=== PATIENT | male | born 1950 | race Caucasian/White ===

== ENCOUNTER 2017-08-30 16:34 | Outpatient (CLI) ==
[2016-04-04 17:44] VITALS: BMI 31.3
--- NOTE | 2017-08-31 08:14 | DI ---
Exam: Right knee three-view History: Knee pain Findings / impression: No acute bony or articular abnormalities. Moderate tricompartmental osteoart hritic change manifest by marginal osteophytosis.
== END 2017-08-30 16:35 | disposition home or self-care (01) ==
LOC: RAD 16:34
PROVIDERS: ATTEND Family Medicine
DX: M25.561 Pain in right knee (principal); M19.90 Unspecified osteoarthritis, unspecified site

== ENCOUNTER 2018-01-10 16:10 | Outpatient (CLI) | payer OTHER ==
[2016-04-04 17:44] VITALS: BMI 31.3
== END 2018-01-10 16:11 | disposition home or self-care (01) ==
LOC: CAR 16:10
PROVIDERS: ATTEND Family Medicine
DX: G47.33 Obstructive sleep apnea (adult) (pediatric) (principal); I50.9 Heart failure, unspecified; N18.3 Chronic kidney disease, stage 3 (moderate); I10 Essential (primary) hypertension; R60.0 Localized edema

== ENCOUNTER 2018-01-22 15:51 | Outpatient (CLI) ==
[2016-04-04 17:44] VITALS: BMI 31.3
== END 2018-01-22 15:52 | disposition home or self-care (01) ==
LOC: CAR 15:51
PROVIDERS: ATTEND Psychiatry & Neurology Sleep Medicine
DX: G47.33 Obstructive sleep apnea (adult) (pediatric) (principal); N18.3 Chronic kidney disease, stage 3 (moderate); I10 Essential (primary) hypertension; I50.9 Heart failure, unspecified; R60.0 Localized edema
CPT/HCPCS: 95810

== ENCOUNTER 2018-02-09 18:26 | Emergency (ER) | payer OTHER ==
[2018-02-09 18:30] VITALS: BP 173/87; TEMP 98.6; BMI 35.0
[2018-02-09] MEDS ORDERED: MOTRIN PO STA (19:28)
--- NOTE | 2018-02-09 19:31 | ED.PDOC ---
General ED Provider: Dr. MITCHEL FELIZ Chief Complaint: Ankle Pain/Injury Stated Complaint: Tripped after a tree log rolled over his left toe. Time Seen by Physician: 19:00 Mode of Arrival: Walk-In Information Source: Patient Exam Limitations: No limitations Primary Care Provider: TORRIE CASTANEDA Nursing and Triage Documentation Reviewed and Agree: Yes Does patient meet sepsis criteria?: No System Inflammatory Response Syndrome: Not Applicable Sepsis Protocol: For patient's 13 years and over: Temp is 96.8 and below OR 101 and greater Pulse >90 BPM Resp >20/minute Acutely Altered Mental Status Are patient's symptoms suggestive of a new infection, such as: -Pneumonia -Skin, Soft Tissue -Endocarditis -UTI -Bone, Joint Infection -Implantable Device -Acute Abdominal Infection -Wound Infection -Meningitis -Blood Stream Catheter Infection -Unknown Musculoskeletal Complaint Exam - Ankle/Foot Complaint/Exam Location of Injury: Reports: Left, Ankle, Foot Mechanism of Injury: Reports: Trauma Onset/Duration: 6 hour ago Symptoms Are: Reports: Still present Onset of Pain: Reports: Immediate Initial Severity: Severe Current Severity: Mild Location: Reports: Diffuse (mid foot ) Character: Reports: Aching, Throbbing Alleviating: Reports: Rest Aggravating: Reports: Movement, Weight bearing Able to Bear Weight: Yes (but with pain ) Associated Signs and Symptoms: Reports: Swelling (minimal ) Related History: Denies: Similar episode, Occupational injury Gout Risk Factors: Reports: None Lower Extremity Findings: Present: Limited range of motion (Dorsiflexion and plantaflexion ) Achilles Tendon Abnormality: No Tenderness: Present: Midfoot Limited Range of Motion: Present: Inversion, Eversion, Dorsiflexion, Plantarflexion Ankle/Foot Picture: 1 - tenderness to palpation Differential Diagnosis: Sprain, Strain Review of Systems - Review Of Systems Constitutional: Reports: No symptoms Eyes: Reports: No symptoms Ears, Nose, Mouth, Throat: Reports: No symptoms Respiratory: Reports: No symptoms Cardiac: Reports: No symptoms GI: Reports: No symptoms : Reports: No symptoms Musculoskeletal: Reports: Joint pain Skin: Reports: No symptoms Neurological: Reports: No symptoms Endocrine: Reports: No symptoms Hematologic/Lymphatic: Reports: No symptoms All Other Systems: Reviewed and Negative Past Medical History - Past Medical History Previously Healthy: No Endocrine: Reports: None Cardiovascular: Reports: None Respiratory: Reports: None Hematological: Reports: None Gastrointestinal: Reports: None Genitourinary: Reports: Kidney stones Neuro/Psych: Reports: None Musculoskeletal: Reports: None Cancer: Reports: None - Surgical History General Surgical History: Reports: None - Family History Family History: Reports: None - Social History Smoking Status: Never smoker Hx Substance Use: No Alcohol Screening: None Physical Exam - Physical Exam Appearance: Well-appearing Pain Distress: Mild Neck: Supple Respiratory: Airway patent, Breath sounds clear, Breath sounds equal, Respirations nonlabored Cardiovascular: RRR, Pulses normal, No rub, No murmur GI/: Soft, Nontender, No masses, Bowel sounds normal, No Organomegaly Musculoskeletal: Limited ROM (planta and Dorsiflexion ) Skin: Warm, Dry, Normal color Neurological: Sensation intact, Motor intact, Reflexes intact, Cranial nerves intact, Alert, Oriented Psychiatric: Anxious Interpretation - Radiology Interpretation Radiology Interpretation By: ED Physician Radiology Results: Negative Exam Interpreted: Other (foot) Critical Care Note - Critical Care Note Total Time (mins): 0 Course - Course Orders, Labs, Meds: Orders Category Date Time Status ED DACIA WRAP .ONCE EMERGENCY 02/09/18 19:28 Active Ibuprofen [Motrin] MEDS 02/09/18 19:28 Discontinued 600 mg PO ONCE STA ANKLE, LEFT MIN 3 VIEWS Stat RADS 02/09/18 18:36 Completed FOOT, LEFT 3 VIEWS Stat RADS 02/09/18 18:36 Completed Medications Discontinued Medications Generic Name Dose Route Start Last Admin Trade Name Freq PRN Reason Stop Dose Admin Ibuprofen 600 mg 02/09/18 19:28 02/09/18 19:39 Motrin PO 02/09/18 19:29 600 mg ONCE STA Administration Vital Signs: Temp Pulse Resp BP Pulse Ox 02/09/18 18:27 98.6 F 70 16 173/87 H 96 Departure - Departure Time of Disposition: 19:31 Disposition: HOME SELF-CARE Discharge Problem: Ankle pain Ankle sprain Qualifiers: Encounter type: initial encounter Involved ligament of ankle: unspecified ligament Laterality: left Qualified Code(s): S93.402A - Sprain of unspecified ligament of left ankle, initial encounter Instructions: Ankle Sprain (ED) Condition: Stable Pt referred to PMD for follow-up: Yes IPMP verified?: No Additional Instructions: Keep left foot elevated Take Ibuprofen or Tylenol as needed for pain Prescriptions: Ibuprofen [Motrin] 600 mg PO Q6H PRN #30 tablet PRN Reason: Analgesia Allergies/Adverse Reactions: Allergies No Known Allergies Allergy (Verified 04/04/16 17:42) Home Medications: Ambulatory Orders Ibuprofen [Motrin] 600 mg PO Q6H PRN #30 tablet 02/09/18 Disposition Discussed With: Patient
--- NOTE | 2018-02-09 19:52 | DI ---
EXAM: Three-view left foot COMPARISON: Left ankle from same day HISTORY: Trauma and pain FINDINGS: There is no acute fracture or dislocation. Alignment is anatomic. Joint spaces are well p reserved. There are calcaneal spurs. There is no soft tissue swelling. No unexpected radio-opaque fo reign bodies. IMPRESSION: No acute osseous abnormality.
--- NOTE | 2018-02-09 19:54 | DI ---
EXAM: Three-view left ankle COMPARISON: Left foot from same day HISTORY: Trauma and pain FINDINGS: There is no acute fracture or dislocation. Alignment is anatomic. There are calcaneal spu rs. There is some soft tissue swelling seen laterally. The ankle mortise is preserved. No unexpected radio-opaque foreign bodies. IMPRESSION: No acute osseous abnormality.
== END 2018-02-09 20:07 | disposition home or self-care (01) ==
LOC: ED 18:26
DX: S93.402A Sprain of unspecified ligament of left ankle, initial encounter (principal); W20.8XXA Other cause of strike by thrown, projected or falling object, initial encounter
CPT/HCPCS: 99283

== ENCOUNTER 2018-12-15 15:18 | Emergency (ER) | payer OTHER ==
[2018-12-15 15:25] VITALS: BP 193/97; TEMP 98.1; BMI 37.3
--- NOTE | 2018-12-15 15:41 | ED.PDOC ---
General ED Provider: Dr. PATRICK PALUMBO Chief Complaint: Shortness of Air Stated Complaint: Shortness of breath. No reported trauma. 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 No recollection of trauma. Time Seen by Physician: 15:30 Mode of Arrival: Walk-In Information Source: Patient Exam Limitations: No limitations Primary Care Provider: TORRIE CASTANEDA Nursing and Triage Documentation Reviewed and Agree: Yes Does patient meet sepsis criteria?: No System Inflammatory Response Syndrome: Not Applicable Sepsis Protocol: For patient's 13 years and over: Temp is 96.8 and below OR 101 and greater Pulse >90 BPM Resp >20/minute Acutely Altered Mental Status Are patient's symptoms suggestive of a new infection, such as: -Pneumonia -Skin, Soft Tissue -Endocarditis -UTI -Bone, Joint Infection -Implantable Device -Acute Abdominal Infection -Wound Infection -Meningitis -Blood Stream Catheter Infection -Unknown Respiratory Complaint Exam - Respiratory Complaint/Exam Onset/Duration: THis AM Symptoms Are: Still present Timing: Constant Initial Severity: Mild Current Severity: Moderate Location: Chest Character: Reports: Non-productive cough Aggravating: Reports: Exertion, Deep breaths, Recumbent position Alleviating: Reports: None Associated Signs and Symptoms: Reports: Chest pain. Denies: Rapid breathing, Dyspnea, Fever, Chills, Pleuritic chest pain, Wheezing, Hemoptysis, Dizziness, Calf pain, Calf swelling, Edema, URI, Nasal congestion, Hoarseness, Sinus discomfort, Vomiting, Sore throat, Weight loss, Decreased oral intake, Increased thirst, Increased appetite, Increased urination Related History: Denies: Similar episode History of Healthcare-Acquired Pneumonia: No Related Surgical History: Reports: None Pulmonary Embolism Risk Factors: None Cardiac Risk Factors: Reports: None Pseudomonas Risk Factors: Reports: None Tuberculosis Risk Factors: Reports: None Status Asthmaticus Risk Factors: Reports: None Home Oxygen Use: No Recent Stress Test: No Recent Echo/LV Function: No Inadequate Respiratory Effort: No Dysphagia Present: No Stridor Present: No JVD Present: No Accessory Muscle Use: No Retractions: Not Present Diminished Breath Sounds: Yes (Lt Basilar region ) Prolonged Respiration: Inspiratory phase Sinus Tenderness: None Grunting Respirations: No Kussmaul Respirations: No Differential Diagnoses: Airway Obstruction, COPD Exacerbation, Bronchospasm Non-Traumatic Chest Pain Syncope: EKG Performed Review of Systems - Review Of Systems Constitutional: Reports: Weakness Ears, Nose, Mouth, Throat: Reports: No symptoms Respiratory: Reports: Cough, Orthopnea, Short of air, Wheezing Cardiac: Reports: No symptoms GI: Reports: No symptoms : Reports: No symptoms Musculoskeletal: Reports: Muscle pain, Other (chest wall pain ) Skin: Reports: No symptoms Neurological: Reports: No symptoms Endocrine: Reports: No symptoms Hematologic/Lymphatic: Reports: No symptoms All Other Systems: Reviewed and Negative Past Medical History - Past Medical History Previously Healthy: No Endocrine: Reports: None Cardiovascular: Reports: None Respiratory: Reports: None Hematological: Reports: None Gastrointestinal: Reports: None Genitourinary: Reports: Kidney stones Neuro/Psych: Reports: None Musculoskeletal: Reports: None Cancer: Reports: None - Surgical History General Surgical History: Reports: None - Family History Family History: Reports: None - Social History Smoking Status: Former smoker Hx Substance Use: No Alcohol Screening: None - Immunizations Tetanus Shot up to Date: Yes Physical Exam - Physical Exam Appearance: Ill-appearing Ill-appearing: Mild Pain Distress: Moderate Eyes: AMARI, EOMI, Conjunctiva clear, Conjunctiva inflammed ENT: Ears normal, Nose normal, Oropharynx normal Neck: Supple Respiratory: Airway patent, Breath sounds diminished (LT Base) Cardiovascular: RRR, Pulses normal, No rub, No murmur GI/: Soft, Nontender, No masses, Bowel sounds normal, No Organomegaly Musculoskeletal: Normal strength (Tenderness to palpation lt ant chest wall), ROM intact, No edema, No calf tenderness Skin: Warm, Dry, Normal color Neurological: Sensation intact, Motor intact, Reflexes intact, Cranial nerves intact, Alert, Oriented Psychiatric: Affect appropriate, Mood appropriate Re-Evaluation - Re-Evaluation Time of Re-Evaluation: 17:15 Status: Improved Vital Signs Stable: Yes Appearance: NAD Lungs: Clear Skin: Warm and Dry Neuro: Alert and Oriented X3 CV: RRR Critical Care Note - Critical Care Note Total Time (mins): 0 Course - Course Hematology/Chemistry: 12/15/18 16:02 12/15/18 16:02 Orders, Labs, Meds: Lab Review 12/15/18 12/15/18 12/15/18 15:40 16:02 16:02 WBC 9.05 RBC 4.75 Hgb 15.1 Hct 45.2 MCV 95.2 H MCH 31.8 H MCHC 33.4 RDW Coeff of Natalio 13.3 Plt Count 118 L Immature Gran % (Auto) 0.3 Neut % (Auto) 73.6 Lymph % (Auto) 15.1 [place] % (Auto) 7.6 Eos % (Auto) 3.2 Baso % (Auto) 0.2 Immature Gran # (Auto) 0.0 Neut # (Auto) 6.7 Lymph # (Auto) 1.4 [place] # (Auto) 0.7 Eos # (Auto) 0.3 Baso # (Auto) 0.0 Puncture Site Rrad O2 Saturation 90.0 L ABG pH 7.369 ABG pCO2 40.2 ABG pO2 61.0 L ABG HCO3 23.2 ABG Total CO2 24 ABG Base Excess -2 George Test + FiO2 % 21.0 Sodium 140.8 Potassium 4.59 Chloride 105.2 Carbon Dioxide 26.4 Anion Gap 13.79 BUN 17.4 Creatinine 1.32 H Estimated GFR (MDRD) 54.00 BUN/Creatinine Ratio 13.18 Glucose 102.3 Lactic Acid Calcium 9.44 Total Bilirubin 0.58 AST 28.4 ALT 14.8 Alkaline Phosphatase 98.1 Total Creatine Kinase 95.7 Troponin I < 0.012 Total Protein 7.44 Albumin 4.41 Globulin 3.03 Albumin/Globulin Ratio 1.45 Urine Color Urine Clarity Urine pH Ur Specific [place] Urine Protein Urine Glucose (UA) Urine Ketones Urine Blood Urine Nitrite Urine Bilirubin Urine Urobilinogen Ur Leukocyte Esterase 12/15/18 12/15/18 16:40 16:44 WBC RBC Hgb Hct MCV MCH MCHC RDW Coeff of Natalio Plt Count Immature Gran % (Auto) Neut % (Auto) Lymph % (Auto) [place] % (Auto) Eos % (Auto) Baso % (Auto) Immature Gran # (Auto) Neut # (Auto) Lymph # (Auto) [place] # (Auto) Eos # (Auto) Baso # (Auto) Puncture Site O2 Saturation ABG pH ABG pCO2 ABG pO2 ABG HCO3 ABG Total CO2 ABG Base Excess George Test FiO2 % Sodium Potassium Chloride Carbon Dioxide Anion Gap BUN Creatinine Estimated GFR (MDRD) BUN/Creatinine Ratio Glucose Lactic Acid 0.80 Calcium Total Bilirubin AST ALT Alkaline Phosphatase Total Creatine Kinase Troponin I Total Protein Albumin Globulin Albumin/Globulin Ratio Urine Color Yellow Urine Clarity Clear Urine pH 6.0 Ur Specific [place]ade 1.015 Urine Protein Negative Urine Glucose (UA) Negative Urine Ketones Negative Urine Blood Negative Urine Nitrite Negative Urine Bilirubin Negative Urine Urobilinogen 0.2 Ur Leukocyte Esterase Negative Orders Category Date Time Status ABG DRAW REQUEST Stat CARDIO 12/15/18 15:51 Completed EKG-(ED ONLY) Stat CARDIO 12/15/18 15:39 Completed NEBULIZER TREATMENT Stat CARDIO 12/15/18 16:10 Completed OXYGEN Routine CARDIO 12/15/18 15:53 Completed IV [ED IV/MEDIPORT/POWERPORT] .ONCE EMERGENCY 12/15/18 15:50 Active ABG Stat LAB 12/15/18 15:40 Completed BLOOD CULTURE (ED ONLY) Stat LAB 12/15/18 16:44 Received CBC W/ AUTO DIFF Stat LAB 12/15/18 16:02 Completed COMPREHENSIVE METABOLIC PANEL Stat LAB 12/15/18 16:02 Completed CPK [CREATINE KINASE] Stat LAB 12/15/18 16:02 Completed LACTIC ACID Stat LAB 12/15/18 16:44 Completed TROPONIN I Stat LAB 12/15/18 16:02 Completed UA [URINALYSIS C & S IF INDICATED] Stat LAB 12/15/18 16:40 Completed 0.9 % Sodium Chloride [Saline Flush] MEDS 12/15/18 15:50 Ordered 1 syr IVF PRN PRN Amlodipine Besylate [Norvasc] MEDS 12/15/18 17:43 Discontinued 5 mg PO ONCE STA Ceftriaxone Sodium [Rocephin] MEDS 12/15/18 17:27 Discontinued 1 gm .ROUTE .STK-MED ONE Ceftriaxone Sodium [Rocephin] 1 gm MEDS 12/15/18 17:23 Active 0.9 % Sodium Chloride [Sodium Chloride] 50 ml IV ONCE Ipratropium/Albuterol Neb [Duoneb] MEDS 12/15/18 16:10 Discontinued 1 vial NEB ONCE STA Methylprednisolone Sod Succ/Pf [Solu-Medrol 125 mg] MEDS 12/15/18 17:22 Discontinued 125 mg IVP ONCE STA Nalbuphine HCl [Nubain] MEDS 12/15/18 15:53 Discontinued 10 mg IVP ONCE STA Sodium Chloride 0.9% [Sodium Chloride] 1,000 ml MEDS 12/15/18 15:54 Active IV ONCE CHEST, 1V AP ONLY Stat RADS 12/15/18 15:40 Completed Medications Generic Name Dose Route Start Last Admin Trade Name Freq PRN Reason Stop Dose Admin Sodium Chloride 1,000 mls @ 125 mls/hr 12/15/18 15:54 12/15/18 16:15 Sodium Chloride IV 12/15/18 23:53 125 mls/hr ONCE ONE Administration Ceftriaxone Sodium 1 gm/ 50 mls @ 75 mls/hr 12/15/18 17:23 12/15/18 17:33 Sodium Chloride IV 12/15/18 18:02 75 mls/hr ONCE STA Administration Sodium Chloride 1 syr 12/15/18 15:50 Saline Flush IVF PRN PRN To flush IV Discontinued Medications Generic Name Dose Route Start Last Admin Trade Name Freq PRN Reason Stop Dose Admin Albuterol/Ipratropium 1 vial 12/15/18 16:10 12/15/18 16:24 Duoneb NEB 12/15/18 16:11 1 vial ONCE STA Administration Amlodipine Besylate 5 mg 12/15/18 17:43 12/15/18 18:01 Norvasc PO 12/15/18 17:44 Not Given ONCE STA Methylprednisolone Sodium Succinate 125 mg 12/15/18 17:22 12/15/18 17:34 Solu-Medrol 125 Mg IVP 12/15/18 17:23 125 mg ONCE STA Administration Nalbuphine HCl 10 mg 12/15/18 15:53 12/15/18 16:15 Nubain IVP 12/15/18 15:54 10 mg ONCE STA Administration Vital Signs: Temp Pulse Resp BP Pulse Ox 12/15/18 15:19 98.1 F 82 22 193/97 H 94 L Departure - Departure Time of Disposition: 17:20 Disposition: HOME SELF-CARE Discharge Problem: Pneumonitis, Mild bibasilar atelectasis, Anterior chest wall pain, Hypertension Instructions: Pneumonitis (ED), Chest Wall Pain (ED) Condition: Good Pt referred to PMD for follow-up: Yes (1 week) IPMP verified?: No Additional Instructions: GO home and Take BP meds as directed; Monitor BP at home daily and record Follow up PCP in 7-10 days Off work through sunday Tylenol for pain as needed AVOID NSAIDS Prescriptions: Amoxicillin/Potassium Clav [Augmentin 875-125 mg Tab] 1 tab PO Q12HR #20 tablet Albuterol Sulfate [Ventolin Hfa] 8 gm IH QID PRN #1 hfa.aer.ad PRN Reason: Shortness of breath Amlodipine Besylate [Norvasc] 5 mg PO DAILY #7 tablet Allergies/Adverse Reactions: Allergies No Known Allergies Allergy (Verified 04/04/16 17:42) Home Medications: Ambulatory Orders Albuterol Sulfate [Ventolin Hfa] 8 gm IH QID PRN #1 hfa.aer.ad 12/15/18 Amitriptyline HCl 25 mg PO MONTHLY 12/15/18 Amoxicillin/Potassium Clav [Augmentin 875-125 mg Tab] 1 tab PO Q12HR #20 tablet 12/15/18 Cyanocobalamin (Vitamin B-12) [Vitamin B-12] 1,000 mcg SQ ONCE 12/15/18 Diclofenac Sodium 75 mg PO DAILY 12/15/18 Diltiazem HCl [Diltiazem 24Hr Cd] 240 mg PO DAILY 12/15/18 Lisinopril [Zestril] 40 mg PO DAILY 12/15/18 Metoprolol Succinate 50 mg PO DAILY 12/15/18 Oxycodone-Acetaminophen 5-325 [Percocet 5-325] 1 tab PO Q6H 12/15/18 Tamsulosin HCl [Flomax] 0.4 mg PO DAILY 12/15/18 Disposition Discussed With: Patient, Family
[2018-12-15] MEDS ORDERED: TORADOL IVP STA (15:50)
[2018-12-15] MEDS ORDERED: NUBAIN IVP STA (15:53)
[2018-12-15] MEDS ORDERED: SODIUM CHLORIDE 1,000 ML IV ONE (15:54)
[2018-12-15] MEDS ORDERED: DUONEB NEB STA (16:10)
--- NOTE | 2018-12-15 16:26 | DI ---
EXAM: Portable AP view of the chest CLINICAL HISTORY: Chest pain. FINDINGS: No priors are available. The heart size and mediastinal contours are normal. No masses are seen. Mild bibasilar infiltrates are present. Left greater than right. No effusions are seen. No pneumothorax is evident. IMPRESSION: Mild bibasilar infiltrates left greater than right
[2018-12-15] MEDS ORDERED: SOLU-MEDROL 125 MG IVP STA (17:22)
[2018-12-15] MEDS ORDERED: ROCEPHIN 1 GM in SODIUM CHLORIDE 50 ML IV STA (17:23)
[2018-12-15] MEDS ORDERED: ROCEPHIN ONE (17:27)
[2018-12-15] MEDS ORDERED: NORVASC PO STA (17:43)
== END 2018-12-15 18:21 | disposition home or self-care (01) ==
LOC: ED 15:18
DX: J18.9 Pneumonia, unspecified organism (principal); J98.11 Atelectasis; R07.89 Other chest pain; I10 Essential (primary) hypertension; R06.02 Shortness of breath; Z79.899 Other long term (current) drug therapy
CPT/HCPCS: 36415; 80053; 81001; 82550; 82803; 83605; 84484; 85025; 87040; 93005; 93010; 94640; 96365; 96375; 99284

== ENCOUNTER 2025-01-25 17:04 | Inpatient (IN) ==
--- NOTE | 2025-01-25 17:25 | ED.PDOC ---
General HPI ED Provider: Dr. LISBET ORO DO Chief Complaint: Shortness of Air Stated Complaint: 75-year-old elderly white male presents via ambulance from intermediate with complaints of acute shortness of breath. Patient is O2 dependent COPD and has been on 3 L nasal cannula for several years now. When asked when his shortness of breath began, patient states 3 years ago. Patient is focused on COVID-19 infection that he feels caused him to be this sick with his breathing. However staff at intermediate stated shortness of breath that was worse began today at 11 AM. Patient denies any new shortness of breath. He is post CVA with expressive aphasia that makes it difficult to understand but he appears to only be complaining of some discomfort from nasal cannula in his nose and his ears. He denies any chest pain, he denies any belly pain, he denies a headache. Again uncertain of orientation or clarity of answers. Patient is obese and laying in bed with tachypneic respiratory rate and tachycardic on arrival. He appears to be in mild respiratory discomfort but not distress. O2 sats on his normal 3 L were 97% on arrival to ED. Per intermediate staff no recent illness and specifically no headache, nausea, vomiting, fever, chills, abdominal pain, pain on urination, rashes or sores, unilateral weakness, headache, or vision changes. Time Seen by Provider: 01/25/25 17:18 Mode of Arrival: Ambulance Information Source: Patient, Senior Living and EMT Exam Limitations: No limitations Primary Care Provider: KEN LIM MD Nursing and Triage Documentation Reviewed and Agree: Yes Opioid Naive vs. Tolerant Does Patient Take Opioids?: No Is Patient Opioid Naive?: Yes What is Opioid Naive?: *Opioid Naive implies the patient is not already taking opioids or not chronically receiving opioids on a daily basis. *PRN dosing is not "usually" associated with tolerance. *Patients are at higher risk of over-sedation and aspiration. Is Patient Opioid Tolerant?: No What is Opioid Tolerant?: *Opioid Tolerance implies less than the expected response to an opioid. *Acquired tolerance is defined by the patient taking 60mg of oral morphine daily (or equianalgesic dose of another opioid) for 1 week or more. *Often associated with chronic pain. *May take more than usual dose to achieve desired pain control. Review of Systems Review Of Systems Constitutional: Denies Chills or Fever Eyes: Denies Vision change Ears, Nose, Mouth, Throat: Denies Ear pain, Nose discharge or Throat pain Respiratory: Reports Cough, Shortness of Breath and Wheezing; Denies Orthopnea Cardiac: Reports Edema; Denies Chest pain GI: Denies Abdominal pain, Diarrhea, Nausea or Vomiting : Denies Burning or Dysuria Musculoskeletal: Denies Back pain Neurological: Reports Anxiety and Depressed; Denies Headache or Weakness PFSH PFSH Medical History (Updated 01/26/25 @ 08:00 by LISBET ORO DO) Hypertension I10 - Essential (primary) hypertension (ICD-10) Family History (Updated 01/25/25 @ 23:31 by FABIOLA MON RN) Other No known health problems Social History (Updated 01/25/25 @ 23:31 by FABIOLA MON RN) Smoking and tobacco status: Never smoker Alcohol intake: former Substance use type: does not use Special margoth needs: No Adopted: No Caregiver/support person: No Foster care: No Housing: intermediate Marital status: D Lives independently: No Daycare: no daycare CHCF: Yes Current occupational status: retired Current gender identity: male Surgical History (Updated 01/25/25 @ 23:31 by FABIOLA MON RN) Hip joint replacement status Z96.649 - Presence of unspecified artificial hip joint (ICD-10) Knee joint replacement status Z96.659 - Presence of unspecified artificial knee joint (ICD-10) History of gastric bypass Z98.84 - Bariatric surgery status (ICD-10) History of joint surgery rotator cuff Z98.890 - Other specified postprocedural states (ICD-10) Status post coronary artery bypass graft Z95.1 - Presence of aortocoronary bypass graft (ICD-10) Physical Exam Physical Exam Appearance: Reports Ill-appearing (Chronically ill-appearing elderly white male who appears older than stated age. He does not appear acutely ill and is not in acute distress.) and Other (Patient apparently status post CVA with some expressive aphasia. Unclear if he has receptive aphasia as well. He is appropriate nd cooperative in interactions with staff and this provider. However he is very difficult to understand when he is talking. Orientation uncertain.) Ill-appearing: None Pain Distress: None Eyes: Reports AMARI, EOMI, Conjunctiva clear and Other (Sclera anicteric); Denies Conjunctiva inflammed ENT: Reports Ears normal, Nose normal (Mild irritation to bilateral naris related to nasal cannula. Otherwise patent and without discharge or drainage or swelling.), Oropharynx normal (Mild cobblestoning noted. No significant erythema. Airway patent.) and Dry mucosa; Denies Rhinorrhea, Erythema or Exudate Neck: Supple Respiratory: Reports Airway patent, Breath sounds equal, Breath sounds diminished, Crackles, Rhonchi, Wheezes and Other (Patient mildly tachypneic but breath sounds are equal, no dullness to percussion, scattered rales and rhonchi and wheezes are noted. Significant bibasilar rales present. Bilateral lower extremity edema 2-3+.. Pancho wrappings in place. Not removed.); Denies Retractions Cardiovascular: Reports Pulses normal, Tachycardia and Other GI/: Reports Soft, Nontender, Bowel sounds normal and Other (Moderate to marked adiposity. Not evaluated for masses or megaly.) Musculoskeletal: Reports ROM intact, Edema and Other (Formal strength testing not performed. Patient moves extremities x 4 but does not appear to be ambulatory and have much strength bilateral lower extremities.) Skin: Reports Warm, Dry and Normal color Neurological: Reports Motor intact, Reflexes intact, Alert, Oriented (Patient appears oriented to place but had apparently not wanted to come to [place] but wanted to come to the [facility]. When told he could not go to [place] he apparently stated he would come to [place]. On questioning, patient initially does not recall that he is at [place] but then remembers when we ) and Other (No facial asymmetries are noted. Gait not observed.) Psychiatric: Reports Other (Affect slightly flat mood appears depressed.) Interpretation EKG Interpretation EKG Interpretation By: ED Physician (Interpreted by this provider@[id number]) Time of EKG #1: 17:28 Rate: Normal (rate 92) Rhythm: Sinus Ectopy: None [place]: NL (Nl intervals; artifact diffusely limits interpretation) ST Segment: Normal Physician Progress Note Physician Progress Note: 75-year-old elderly white male presents via ambulance from intermediate with complaints of acute shortness of breath. Patient is O2 dependent COPD and has been on 3 L nasal cannula for several years now. When asked when his shortness of breath began, patient states 3 years ago. Patient is focused on COVID-19 infection that he feels caused him to be this sick with his breathing. However staff at intermediate stated shortness of breath that was worse began today at 11 AM. Patient denies any new shortness of breath. He is post CVA with expressive aphasia that makes it difficult to understand but he appears to only be complaining of some discomfort from nasal cannula in his nose and his ears. He denies any chest pain, he denies any belly pain, he denies a headache. Again uncertain of orientation or clarity of answers. Patient is obese and laying in bed with tachypneic respiratory rate and tachycardic on arrival. He appears to be in mild respiratory discomfort but not distress. O2 sats on his normal 3 L were 97% on arrival to ED. History, medications, chief complaint, and exam were all evaluated and considered. Will proceed with workup for CHF and COPD exacerbation as well as acute KS versus acute coronary syndrome. Labs were sent, chest x-ray obtained, and EKG performed. Patient's breathing had improved with DuoNeb here. We did not proceed with steroids given improvement and patient appeared to be at his baseline. Patient remained mildly tachypneic and D-dimer was elevated. Given the tachypnea and tachycardia and worsening shortness of breath per intermediate staff, we did go ahead and obtain CT PE protocol. CT PE protocol read is negative for PE and no additional acute pathology noted. After review of labs, ABG, and chest x-ray, it was decided to admit to observation for aggressive pulmonary toiletry and further monitoring. No evidence for acute illness but acute exacerbation COPD is likely with a component of systolic CHF. Given patient's significant edema, we will go ahead and treat with some IV Lasix as well. Advised patient will admit for observation and monitoring and aggressive pulmonary treatments to see if we can get him to feel better with his breathing. He agrees to plan of action. 20:45p patient discussed with Chase Dinh NP. She agrees to admit for observation. Will begin aggressive pulmonary toiletry and monitor for worsening or improving condition. At this time patient is stable on 3 L nasal cannula. All EKG and plain radiographs are reviewed viewed and interpreted by this provider independently unless otherwise noted.. CT scans are reviewed and interpreted by radiology unless otherwise noted. Minors or disabled patients accompanied by guardians have had appropriate consent obtained for testing and treatment. This note is created using voice dictation and may contain spelling and/or contextual grammatical errors related to voice dictation. Course Course 01/26/25 05:29 01/26/25 05:29 Orders, Labs, Meds: Lab Review 01/25/25 01/25/25 01/25/25 17:25 17:28 17:34 WBC 7.03 RBC 3.37 L Hgb 10.4 L Hct 32.5 L MCV 96.4 H MCH 30.9 MCHC 32.0 RDW Coeff of Natalio 15.9 H Plt Count 161 Immature Gran % (Auto) 0.3 Neut % (Auto) 65.1 Lymph % (Auto) 16.5 [place] % (Auto) 9.4 Eos % (Auto) 8.4 H Baso % (Auto) 0.3 Neut # (Auto) 4.6 Lymph # (Auto) 1.2 [place] # (Auto) 0.7 Eos # (Auto) 0.6 Baso # (Auto) 0.0 Immature Gran # (Auto) 0.0 Puncture Site Rt brach Base Excess 7.2 H O2 Saturation 94.0 ABG pH 7.50 H ABG pCO2 39.0 ABG pO2 64.0 L ABG HCO3 30.4 H ABG Total CO2 31.6 H George Test N/a Hemoglobin 2.4 H Oxyhemoglobin 92.1 L Carboxyhemoglobin 6.2 H Total Hemoglobin 10.0 L O2 Delivery Device Cannula Oxygen Liter Flow 3.00 FiO2 % 32.0 Sodium 142.1 Potassium 3.77 Chloride 105.2 Carbon Dioxide 32.2 H Anion Gap 8.47 BUN 24.0 H Creatinine 1.14 H Estimated GFR (MDRD) 63.00 BUN/Creatinine Ratio 21.05 Glucose 95.6 Calcium 9.37 Total Bilirubin 0.47 AST 33.7 ALT 21.0 Alkaline Phosphatase 115.5 Troponin I 0.013 NT-Pro-B Natriuret Pep 525 H Total Protein 6.23 L Albumin 3.36 L Globulin 2.87 Albumin/Globulin Ratio 1.17 D-Dimer 723.95 H Orders Category Date Time Status ADMIT OBSERVATION [PLACE PATIENT OBSERVATION] .TO ADMISSION 01/25/25 20:52 Active MEDSURG (MONITORED BED) ABG DRAW REQUEST Stat CARDIO 01/25/25 17:19 Completed EKG-(ED ONLY) Stat CARDIO 01/25/25 17:18 Completed NEBULIZER TREATMENT Routine CARDIO 01/25/25 20:57 Active NEBULIZER TREATMENT Stat CARDIO 01/25/25 17:27 Completed OXYGEN Routine CARDIO 01/25/25 20:58 Active ACTIVITY .Early Mobilization for VTE Prevention CARE 01/25/25 20:57 Active NPO REMINDER: IMAGING ONCE CARE 01/25/25 19:28 Completed TELEMETRY MONITORING TELE CARE 01/25/25 20:52 Active VITAL SIGNS Q4HR CARE 01/25/25 20:58 Active CARDIAC DIET DIETARY 01/26/25 Breakfast Ordered FLUID RESTRICTION 1800 ML DIETARY 01/26/25 Breakfast Ordered ABG COOX Stat LAB 01/25/25 17:34 Completed CBC W/ AUTO DIFF DAILY@0600 LAB 01/26/25 05:29 Completed CBC W/ AUTO DIFF DAILY@0600 LAB 01/27/25 06:00 Ordered CBC W/ AUTO DIFF Stat LAB 01/25/25 17:28 Completed CMP [COMPREHENSIVE METABOLIC PANEL] Stat LAB 01/25/25 17:28 Completed COMPREHENSIVE METABOLIC PANEL DAILY@0600 LAB 01/26/25 05:29 Completed COMPREHENSIVE METABOLIC PANEL DAILY@0600 LAB 01/27/25 06:00 Ordered D-DIMER Stat LAB 01/25/25 17:28 Completed ED PROBNP [NT-PROBNP(ED)] Stat LAB 01/25/25 17:25 Completed TROPONIN I Stat LAB 01/25/25 17:28 Completed Acetaminophen [Tylenol] Meds 01/25/25 20:57 Active 650 mg PO Q4H PRN Furosemide [Lasix] Meds 01/26/25 06:00 Active 40 mg IVP BIDAC2 Furosemide [Lasix] Meds 01/25/25 19:27 Discontinued 60 mg IVP ONCE STA Iohexol [Omnipaque 350 mg/ml 100Ml] Meds 01/25/25 19:43 Discontinued 100 ml IVP ONCE ONE Ipratropium/Albuterol Neb [Duoneb] Meds 01/25/25 17:27 Discontinued 3 ml NEB ONCE STA Ipratropium/Albuterol Neb [Duoneb] Meds 01/26/25 00:00 Active 3 ml NEB RTQ6H CHEST, 1V AP ONLY Stat RADS 01/25/25 17:18 Completed CTA CHEST PE PROTOCOL Stat RADS 01/25/25 19:28 Completed Medications Generic Name Dose Route Start Last Admin Trade Name Freq PRN Reason Stop Dose Admin Acetaminophen 650 mg 01/25/25 20:57 Acetaminophen 325 Mg Tablet PO Q4H PRN Mild Pain Acetaminophen 650 mg 01/26/25 02:27 Acetaminophen 325 Mg Tablet PO Q4H PRN FEVER/PAIN Albuterol/Ipratropium 3 ml 01/26/25 00:00 01/26/25 05:42 Ipratropium/Albuterol Vial.Neb NEB 3 ml RTQ6H [place] Administration Albuterol/Ipratropium 3 ml 01/26/25 02:27 Ipratropium/Albuterol Vial.Neb NEB Q4H PRN Asthma Apixaban 5 mg 01/26/25 09:00 Apixaban 5 Mg Tab PO 2XD [facility] Ascorbic Acid 500 mg 01/26/25 09:00 Ascorbic Acid 500 Mg Tablet PO DAILY [facility] Aspirin 81 mg 01/26/25 09:00 Aspirin 81 Mg Tablet. PO DAILY [facility] Bisacodyl 10 mg 01/26/25 02:27 Bisacodyl 10 Mg Supp.Rect RC DAILY PRN Constipation Budesonide/Formoterol Fumarate 2 puff 01/26/25 09:00 Budesonide/Formoterol Fumarate 160/4.5 Mcg Inhaler IH BID [facility] Buspirone HCl 15 mg 01/26/25 09:00 Buspirone Hcl 10 Mg Tablet PO 2XD [facility] Cholecalciferol 5,000 unit 01/26/25 09:00 Cholecalciferol (Vitamin D3) 1,000 Unit (25 Mcg) Tablet PO DAILY [facility] Diltiazem HCl 240 mg 01/26/25 09:00 Diltiazem Hcl 120 Mg Cap.Er.24h PO DAILY [facility] Docusate Sodium 100 mg 01/26/25 09:00 Docusate Sodium 100 Mg Capsule PO BID [facility] Famotidine 20 mg 01/26/25 06:00 01/26/25 06:54 Famotidine 20 Mg Tablet PO 20 mg DAILY [facility] Administration Ferrous Sulfate 324 mg 01/26/25 09:00 Ferrous Sulfate 324 Mg Tablet. PO DAILY [facility] Furosemide 40 mg 01/26/25 06:00 01/26/25 05:23 Furosemide Inj 40 Mg/4 Ml Vial IVP Not Given BIDAC2 [place] Magnesium Hydroxide 30 ml 01/26/25 02:27 Magnesium Hydroxide 30 Ml Cup PO DAILY PRN Constipation Melatonin 4.5 mg 01/26/25 21:00 Melatonin 3 Mg Tablet PO BEDTIME [facility] Metoprolol Succinate 25 mg 01/26/25 09:00 Metoprolol Succinate 25 Mg Tab.Er.24h PO DAILY [facility] Multivitamins 1 tab 01/26/25 09:00 Multivitamin 1 Tab PO DAILY [facility] Non-Formulary Medication 1,000 mcg 01/26/25 09:00 Cyanocobalamin (Vitamin B-12) [Vitamin B-12] PO DAILY [facility] Potassium Chloride 10 meq 01/26/25 09:00 Potassium Chloride 10 Meq Capsule.Er PO DAILY [facility] Sertraline HCl 100 mg 01/26/25 09:00 Sertraline Hcl 50 Mg Tablet PO DAILY [facility] Silver Sulfadiazine 1 applic 01/26/25 09:00 Silver Sulfadiazine 50 Gm Cream TP DAILY [facility] Tamsulosin HCl 0.4 mg 01/26/25 09:00 Tamsulosin Hcl 0.4 Mg Cap.Er.24h PO DAILY [facility] Tiotropium [place] 1 cap 01/26/25 09:00 Tiotropium [place] 18 Mcg Cap.W.Dev IH Q24H [facility] Discontinued Medications Generic Name Dose Route Start Last Admin Trade Name Freq PRN Reason Stop Dose Admin Albuterol/Ipratropium 3 ml 01/25/25 17:27 01/25/25 17:47 Ipratropium/Albuterol Vial.Neb NEB 01/25/25 17:28 3 ml ONCE STA Administration Furosemide 60 mg 01/25/25 19:27 01/25/25 20:29 Furosemide Inj 100 Mg/10 Ml Vial IVP 01/25/25 19:28 60 mg ONCE STA Administration Furosemide 40 mg 01/26/25 02:17 01/26/25 02:43 Furosemide Inj 40 Mg/4 Ml Vial IVP 01/26/25 02:18 40 mg ONCE ONE Administration Iohexol 100 ml 01/25/25 19:43 01/25/25 19:44 Iohexol 350 Mg/Ml 100ml IVP 01/25/25 19:44 100 ml ONCE ONE Administration Metoprolol Tartrate 2.5 mg 01/26/25 02:17 01/26/25 02:43 Metoprolol Tartrate 5 Mg/5 Ml Vial IVP 01/26/25 02:18 2.5 mg ONCE ONE Administration Non-Formulary Medication 118 ml 01/26/25 02:33 Sodium Phosphates [Fleet Enema] RC DAILY PRN Constipation Tiotropium [place] 1 cap 01/26/25 03:30 01/26/25 07:10 Tiotropium [place] 18 Mcg Cap.W.Dev IH Not Given Q24H [place] Vital Signs: Temp Pulse Resp BP Pulse Ox 01/25/25 17:05 99.5 F 94 28 H 149/75 H 98 Discharge Plan Discharge Patient Disposition: PLACED OBSERVATION Discharge Problem: COPD exacerbation, Stage 3a chronic kidney disease (CKD) HTN (hypertension) Qualifiers: Hypertension type: primary hypertension Qualified Code(s): I10 - Essential (primary) hypertension Did you review [place] [employer]IOR DEVELOPER for ALL controlled substances?: Not Applicable ED Provider: LISBET ORO Condition: Stable
[2025-01-25 17:40] LABS: IMMATURE GRANULOCYTE # (AUTO) 0.0 (0.0-1.0); IMMATURE GRANULOCYTE % (AUTO) 0.3 % (0.0-5.0); RDW COEFFICIENT OF VARIATION 15.9 % (11.6-14.8)
[2025-01-25 17:42] LABS: ABG O2 HGB 92.1 % (95-100); ABG PCO2 39.0 mmHg (35-45); ABG PO2 64.0 mmHg (85-100); BEecf 7.2 (-2.0-3.0); FI02 32.0 %; HCO3 30.4 (21-28); TCO2 31.6 (19-24)
[2025-01-25 17:43] LABS: ABG PH 7.50 (7.35-7.45)
[2025-01-25] MEDS: DUONEB NEB STA (17:47)
--- NOTE | 2025-01-25 17:57 | DI ---
EXAM: CHEST FRONTAL VIEW HISTORY: Chest pain COMPARISON: 01/16/2019 IMPRESSION: Heart size is within normal limits. Elevated right hemidiaphragm with mild adjacent atelectasis. Lungs were otherwise clear. No pleural fluid or pneumothorax. No acute bony finding.
[2025-01-25 18:03] LABS: CREATININE 1.14 mg/dL (0.60-1.10)
[2025-01-25] MEDS: OMNIPAQUE 350 MG/ML 100ML IVP ONE (19:44)
[2025-01-25] MEDS: LASIX IVP STA (20:29)
--- NOTE | 2025-01-25 20:39 | CT ---
EXAM: CT ANGIOGRAPHY OF THE CHEST HISTORY: Elevated D-dimer and shortness of breath TECHNIQUE: 1.[address] of the chest utilizing CT angiography protocol. Multiplanar and three-dimensional reformations were performed. FINDINGS: Technically adequate for evaluation of pulmonary arteries. No pulmonary artery filling defects. Atherosclerotic calcification of the aorta without aneurysm or dissection. No pathologic lymph node enlargement. Elevated right hemidiaphragm and adjacent thick atelectasis. Atelectasis along the fissure in the right upper lobe. No infiltrates at the pneumatized lung. No acute chest wall abnormality. No acute findings of the upper abdomen. IMPRESSION: 1. No evidence of pulmonary artery thrombus 2. Right atelectasis and volume loss 3. No infiltrates of the pneumatized lung All CT scans are performed using dose optimization techniques as appropriate to the performed exam and include at least one of the following: Automated exposure control, adjustment of the mA and/or kV according to size, and the use of iterative reconstruction technique.
[2025-01-25 22:08] LABS: GLUCOSE, URINE (UA) Negative (NEGATIVE); LEUKOCYTE ESTERASE ,URINE 2+ (NEGATIVE); URINE, BLOOD 1+ (NEGATIVE)
[2025-01-25 22:24] LABS: AMORPHOUS SEDIMENT,UR 1+ (NOT PRESENT); URINE WBC, MICROSCOPIC 20-30 (0-2)
[2025-01-25] MEDS: DUONEB NEB SCH (23:06)
[2025-01-26 00:29] VITALS: BMI 37.1
[2025-01-26] MEDS ORDERED: TYLENOL PO PRN (02:27)
[2025-01-26] MEDS ORDERED: MILK OF MAGNESIA PO PRN (02:27)
[2025-01-26] MEDS ORDERED: DULCOLAX RC PRN (02:27)
[2025-01-26] MEDS ORDERED: DUONEB NEB PRN (02:27)
[2025-01-26] MEDS ORDERED: [UNRECOGNIZED DRUG - OTHER] RC PRN (02:33)
[2025-01-26] MEDS ORDERED: SODIUM PHOSPHATE MONOBASIC RC PRN (02:33)
[2025-01-26] MEDS ORDERED: SODIUM PHOSPHATE DIBASIC RC PRN (02:33)
[2025-01-26] MEDS: LOPRESSOR IVP ONE (02:43)
[2025-01-26] MEDS: LASIX IVP ONE (02:43)
[2025-01-26] MEDS: LASIX IVP SCH (05:23)
[2025-01-26 05:34] LABS: IMMATURE GRANULOCYTE # (AUTO) 0.0 (0.0-1.0); IMMATURE GRANULOCYTE % (AUTO) 0.3 % (0.0-5.0); RDW COEFFICIENT OF VARIATION 15.8 % (11.6-14.8)
[2025-01-26 05:54] LABS: CREATININE 1.11 mg/dL (0.60-1.10)
[2025-01-26] MEDS: PEPCID PO SCH (06:54)
[2025-01-26] MEDS: SPIRIVA IH SCH ×2 (07:10→09:30)
[2025-01-26] MEDS: ASPIRIN EC PO SCH (08:49)
[2025-01-26] MEDS: VITAMIN D PO SCH (08:50)
[2025-01-26] MEDS: ZOLOFT PO SCH (08:50)
[2025-01-26] MEDS: FLOMAX PO SCH (08:51)
[2025-01-26] MEDS: MULTIVITAMIN TABLET PO SCH (08:51)
[2025-01-26] MEDS: COLACE PO SCH (08:52)
[2025-01-26] MEDS: CARDIZEM CD PO SCH (08:52)
[2025-01-26] MEDS: TOPROL XL PO SCH (08:52)
[2025-01-26] MEDS: VITAMIN C PO SCH (08:52)
[2025-01-26] MEDS: MICRO-K CAP PO SCH (08:53)
[2025-01-26] MEDS: FERROUS SULFATE PO SCH (08:53)
[2025-01-26] MEDS ORDERED: NON-FORMULARY MEDICATION (Fluticasone Propion-Salmeterol 250-50 mcg/dose blister with devi IH SCH (09:00)
[2025-01-26] MEDS: BUSPAR PO SCH (09:28)
[2025-01-26] MEDS: ELIQUIS PO SCH (09:29)
[2025-01-26] MEDS: SYMBICORT 160-4.5 MCG INHALER IH SCH (09:30)
--- NOTE | 2025-01-26 11:28 | PCM ---
Date of Service Date Seen by Provider: 01/26/25 Time Seen by Provider: 08:30 Admit Day/Time Admission Date: 01/25/25 Admission Time: 20:52 Reason for Admission Chief Complaint: ACUTE COPD EXACER. Hospital Provider Hospital Provider: MELISSA WHEATLEY PA-C, [facility] Primary Care Physician Primary Care Physician: KEN LIM MD History of Present Illness History of Present Illness: Patient is a 75 year old male who presents from [place] for cc of SOB. Patient is fixated on his covid diagnosis a few years ago when asked how long he's been SOB. Reportedly he was noted to be SOB at [place] yesterday morning. In ER, BNP elevated from baseline. He is requiring 4L, baseline of 3L, and noted to have significant lower ext edema. He was given lasix. Admitted to [facility]. Ovenrig patient had increased RR and was SOB. He was given extra dose of lasix and metoprolol, as HR was elevated as well. Today patient continues to have significant lower ext edema and has had about 3L out. Case Discussed With Case Discussed With: Patient's case was discussed with the ER Physicians, Dr. Sifuentes. [facility] Medical History Hypertension I10 - Essential (primary) hypertension (ICD-10) Surgical History Hip joint replacement status Z96.649 - Presence of unspecified artificial hip joint (ICD-10) Knee joint replacement status Z96.659 - Presence of unspecified artificial knee joint (ICD-10) History of gastric bypass Z98.84 - Bariatric surgery status (ICD-10) History of joint surgery rotator cuff Z98.890 - Other specified postprocedural states (ICD-10) Status post coronary artery bypass graft Z95.1 - Presence of aortocoronary bypass graft (ICD-10) Family History Other No known health problems Social History Smoking and tobacco status: Never smoker Alcohol intake: former Substance use type: does not use Special margoth needs: No Adopted: No Caregiver/support person: No Foster care: No Housing: halfway Marital status: D Lives independently: No Daycare: no daycare MCFP: Yes Current occupational status: retired Current gender identity: male Allergies Allergies Allergy/AdvReac Type Severity Reaction Status Date / Time No Known Allergies Allergy Verified 01/25/25 17:40 Current Medications Home Medications Acetaminophen (Acetaminophen 325 Mg Tablet) 650 mg PO Q4H PRN PRN Reason: Mild Pain Acetaminophen (Acetaminophen 325 Mg Tablet) 650 mg PO Q4H PRN PRN Reason: FEVER/PAIN Albuterol/Ipratropium (Ipratropium/Albuterol Vial.Neb) 3 ml NEB RTQ6H [facility] Last Admin: 01/26/25 11:10 Dose: 3 ml Albuterol/Ipratropium (Ipratropium/Albuterol Vial.Neb) 3 ml NEB Q4H PRN PRN Reason: Asthma Apixaban (Apixaban 5 Mg Tab) 5 mg PO 2XD [facility] Last Admin: 01/26/25 09:29 Dose: 5 mg Ascorbic Acid (Ascorbic Acid 500 Mg Tablet) 500 mg PO DAILY [facility] Last Admin: 01/26/25 08:52 Dose: 500 mg Aspirin (Aspirin 81 Mg Tablet.Dr) 81 mg PO DAILY [facility] Last Admin: 01/26/25 08:49 Dose: 81 mg Bisacodyl (Bisacodyl 10 Mg Supp.Rect) 10 mg RC DAILY PRN PRN Reason: Constipation Budesonide/Formoterol Fumarate (Budesonide/Formoterol Fumarate 160/4.5 Mcg Inhaler) 2 puff IH BID [facility] Last Admin: 01/26/25 09:30 Dose: 2 puff Buspirone HCl (Buspirone Hcl 10 Mg Tablet) 15 mg PO 2XD [facility] Last Admin: 01/26/25 09:28 Dose: 15 mg Cholecalciferol (Cholecalciferol (Vitamin D3) 1,000 Unit (25 Mcg) Tablet) 5,000 unit PO DAILY [facility] Last Admin: 01/26/25 08:50 Dose: 5,000 unit Diltiazem HCl (Diltiazem Hcl 120 Mg Cap.Er.24h) 240 mg PO DAILY [facility] Last Admin: 01/26/25 08:52 Dose: 240 mg Docusate Sodium (Docusate Sodium 100 Mg Capsule) 100 mg PO BID [facility] Last Admin: 01/26/25 08:52 Dose: 100 mg Famotidine (Famotidine 20 Mg Tablet) 20 mg PO DAILY [facility] Last Admin: 01/26/25 08:53 Dose: 20 mg Ferrous Sulfate (Ferrous Sulfate 324 Mg Tablet.Dr) 324 mg PO DAILY [facility] Last Admin: 01/26/25 08:53 Dose: 324 mg Furosemide (Furosemide Inj 40 Mg/4 Ml Vial) 40 mg IVP BIDAC2 [facility] Last Admin: 01/26/25 05:23 Dose: Not Given Magnesium Hydroxide (Magnesium Hydroxide 30 Ml Cup) 30 ml PO DAILY PRN PRN Reason: Constipation Melatonin (Melatonin 3 Mg Tablet) 4.5 mg PO BEDTIME [facility] Metoprolol Succinate (Metoprolol Succinate 25 Mg Tab.Er.24h) 25 mg PO DAILY [facility] Last Admin: 01/26/25 08:52 Dose: 25 mg Multivitamins (Multivitamin 1 Tab) 1 tab PO DAILY [facility] Last Admin: 01/26/25 08:51 Dose: 1 tab Non-Formulary Medication (Cyanocobalamin (Vitamin B-12) [Vitamin B-12]) 1,000 mcg PO DAILY [facility] Last Admin: 01/26/25 09:18 Dose: Not Given Potassium Chloride (Potassium Chloride 10 Meq Capsule.Er) 10 meq PO DAILY [facility] Last Admin: 01/26/25 08:53 Dose: 10 meq Sertraline HCl (Sertraline Hcl 50 Mg Tablet) 100 mg PO DAILY [facility] Last Admin: 01/26/25 08:50 Dose: 100 mg Silver Sulfadiazine (Silver Sulfadiazine 50 Gm Cream) 1 applic TP DAILY [facility] Last Admin: 01/26/25 12:14 Dose: 1 applic Tamsulosin HCl (Tamsulosin Hcl 0.4 Mg Cap.Er.24h) 0.4 mg PO DAILY [facility] Last Admin: 01/26/25 08:51 Dose: 0.4 mg Tiotropium [place] (Tiotropium [place] 18 Mcg Cap.W.Dev) 1 cap IH Q24H [facility] Last Admin: 01/26/25 09:30 Dose: 1 cap diltiazem HCl 240 mg capsule,extended release 24 hr 240 mg PO DAILY 12/15/18 [History Confirmed 01/25/25] tamsulosin 0.4 mg capsule (Flomax) 0.4 mg PO DAILY 12/15/18 [History Confirmed 01/25/25] metoprolol succinate 25 mg tablet,extended release 24 hr See Rx Instructions .Route .COMPLEX #180 tabs 09/06/22 [Rx Confirmed 01/25/25] acetaminophen 325 mg tablet 650 mg PO Q4H PRN fever or pain 01/25/25 [History Confirmed 01/25/25] apixaban 5 mg tablet (Eliquis) 5 mg PO 2XD 01/25/25 [History Confirmed 01/25/25] ascorbic acid (vitamin C) 500 mg chewable tablet (Acerola C) 500 mg PO DAILY 01/25/25 [History Confirmed 01/25/25] aspirin 81 mg tablet 81 mg PO DAILY 01/25/25 [History Confirmed 01/25/25] bisacodyl 10 mg rectal suppository (Dulcolax (bisacodyl)) 10 mg VA DAILY PRN constipation 01/25/25 [History Confirmed 01/25/25] buspirone 15 mg tablet 15 mg PO 2XD 01/25/25 [History Confirmed 01/25/25] cholecalciferol (vitamin D3) 125 mcg (5,000 unit) tablet (Vitamin D3) 5,000 unit PO DAILY 01/25/25 [History Confirmed 01/25/25] cyanocobalamin (vitamin B-12) 1,000 mcg tablet (Vitamin B-12) 1,000 mcg PO DAILY 01/25/25 [History Confirmed 01/25/25] diltiazem HCl 240 mg capsule,extended release 24 hr, controlled (DILT-XR) 240 mg PO DAILY 01/25/25 [History Confirmed 01/25/25] docusate sodium 100 mg capsule 100 mg PO BID 01/25/25 [History Confirmed 01/25/25] famotidine 20 mg tablet 20 mg PO DAILY 01/25/25 [History Confirmed 01/25/25] ferrous sulfate 325 mg (65 mg iron) tablet (Feosol) 325 mg PO DAILY 01/25/25 [History Confirmed 01/25/25] fluticasone 250 mcg-salmeterol 50 mcg/dose blistr powdr for inhalation 1 ea inhalation 2XD 01/25/25 [History Confirmed 01/25/25] furosemide 40 mg tablet 40 mg PO DAILY 01/25/25 [History Confirmed 01/25/25] geriatric multivitamin-min 1 cap PO DAILY 01/25/25 [History Confirmed 01/25/25] ipratropium 0.5 mg-albuterol 3 mg (2.5 mg base)/3 mL nebulization soln 3 ml inhalation Q4H PRN shortness of breath 01/25/25 [History Confirmed 01/25/25] magnesium hydroxide 400 mg/5 mL oral suspension (Milk of Magnesia) 2,400 mg PO DAILY PRN constipation 01/25/25 [History Confirmed 01/25/25] melatonin 5 mg tablet 5 mg PO BEDTIME 01/25/25 [History Confirmed 01/25/25] potassium chloride 10 mEq tablet,extended release(part/cryst) 10 meq PO DAILY 01/25/25 [History Confirmed 01/25/25] sertraline 100 mg tablet 100 mg PO DAILY 01/25/25 [History Confirmed 01/25/25] silver sulfadiazine 1 % topical cream 1 applic topical DAILY 01/25/25 [History Confirmed 01/25/25] sodium phosphates 19 gram-7 gram/118 mL enema (Fleet Enema) 118 ml VA DAILY PRN constipation 01/25/25 [History Confirmed 01/25/25] tiotropium bromide 2.5 mcg/actuation mist for inhalation (Spiriva Respimat) 2 puff inhalation Q24H 01/25/25 [History Confirmed 01/25/25] Opioid Naive vs. Tolerant Does Patient Take Opioids?: No Is Patient Opioid Naive?: Yes What is Opioid Naive?: *Opioid Naive implies the patient is not already taking opioids or not chronically receiving opioids on a daily basis. *PRN dosing is not "usually" associated with tolerance. *Patients are at higher risk of over-sedation and aspiration. Is Patient Opioid Tolerant?: No What is Opioid Tolerant?: *Opioid Tolerance implies less than the expected response to an opioid. *Acquired tolerance is defined by the patient taking 60mg of oral morphine daily (or equianalgesic dose of another opioid) for 1 week or more. *Often associated with chronic pain. *May take more than usual dose to achieve desired pain control. Review of Systems Constitutional: Denies Fever or Fatigue Cardiovascular: Reports Edema; Denies Chest pain or Chest Pressure Respiratory: Reports Shortness of air; Denies Cough Gastrointestinal: Denies Nausea, Vomiting, Diarrhea, Abdominal pain or Melena Genitourinary: Reports Dysuria and Other (+chronic hernandez ) Physical examination Most Recent Vital Signs: Most Recent Vital Signs Temperature 96.8 F L 01/26/25 09:54 Temperature Source Temporal Artery Scan 01/26/25 09:54 Temperature Source Infrared 01/25/25 17:05 Pulse Rate 97 01/26/25 09:54 Respiratory Rate 16 01/26/25 09:54 Blood Pressure 139/66 01/26/25 09:54 Blood Pressure Mean 90 01/26/25 09:54 Blood Pressure Right Arm 147/82 01/25/25 22:00 Blood Pressure Location Left Arm 01/26/25 09:54 Blood Pressure Position Supine 01/26/25 09:54 O2 Sat by Pulse Oximetry 90 L 01/26/25 09:54 Oxygen Delivery Method Nasal Cannula 01/26/25 10:00 Oxygen Flow Rate 3 01/26/25 10:00 Height 5 ft 9 in 01/25/25 22:00 Weight 114.1 kg 01/25/25 22:00 Telemetry Type Remote Telemetry 01/26/25 07:00 Telemetry Monitoring Continues 01/26/25 07:00 Telemetry Heart Rate 102 H 01/26/25 07:00 Telemetry SPO2 94 01/26/25 07:00 EKG VA Interval 0.18 01/26/25 07:00 EKG QRS Interval 0.08 01/26/25 07:00 Telemetry Strip Reading SR/ST w/ frequent PACs 01/26/25 07:00 Appearance: Positive No Apparent Distress, Alert and Oriented x3 and Other (+chronically ill ) Skin: Positive [place], Warm, Good Turgor and Good Color HEENT: Positive Normocephalic and Atraumatic Neck: Positive Supple and Midline Trachea Chest/Lungs: Positive Clear to Auscultation Bilaterally; Negative Rales, Rhonci or Wheezes Heart: Positive Irregular Rhythm GI/: Positive Soft, Nontender, Bowel Sounds Normal and No Distention Extremities: Positive Edema (2+ pitting edema, worse on left side ) Neurological: Positive Cranial Nerves Intact, Alert, Oriented and Other (+generalized weakness ) Psychiatric: Positive Oriented x4, Appropriate Mood and Appropriate Affect Additional Findings: expressive aphasia noted, difficult to understand at times Labs This Visit Labs This Visit: Labs This Visit 01/25/25 01/25/25 01/25/25 17:25 17:28 17:34 WBC 7.03 RBC 3.37 L Hgb 10.4 L Hct 32.5 L MCV 96.4 H MCH 30.9 MCHC 32.0 RDW Coeff of Natalio 15.9 H Plt Count 161 Immature Gran % (Auto) 0.3 Neut % (Auto) 65.1 Lymph % (Auto) 16.5 [place] % (Auto) 9.4 Eos % (Auto) 8.4 H Baso % (Auto) 0.3 Neut # (Auto) 4.6 Lymph # (Auto) 1.2 [place] # (Auto) 0.7 Eos # (Auto) 0.6 Baso # (Auto) 0.0 Immature Gran # (Auto) 0.0 Puncture Site Rt brach Base Excess 7.2 H O2 Saturation 94.0 ABG pH 7.50 H ABG pCO2 39.0 ABG pO2 64.0 L ABG HCO3 30.4 H ABG Total CO2 31.6 H George Test N/a Hemoglobin 2.4 H Oxyhemoglobin 92.1 L Carboxyhemoglobin 6.2 H Total Hemoglobin 10.0 L O2 Delivery Device Cannula Oxygen Liter Flow 3.00 FiO2 % 32.0 Sodium 142.1 Potassium 3.77 Chloride 105.2 Carbon Dioxide 32.2 H Anion Gap 8.47 BUN 24.0 H Creatinine 1.14 H Estimated GFR (MDRD) 63.00 BUN/Creatinine Ratio 21.05 Glucose 95.6 Calcium 9.37 Total Bilirubin 0.47 AST 33.7 ALT 21.0 Alkaline Phosphatase 115.5 Troponin I 0.013 NT-Pro-B Natriuret Pep 525 H Total Protein 6.23 L Albumin 3.36 L Globulin 2.87 Albumin/Globulin Ratio 1.17 D-Dimer 723.95 H Urine Color Urine Clarity Urine pH Ur Specific [place] Urine Protein Urine Glucose (UA) Urine Ketones Urine Blood Urine Nitrite Urine Bilirubin Urine Urobilinogen Ur Leukocyte Esterase Urine Microscopic RBC Urine Microscopic WBC Ur Squamous Epith Cells Amorphous Sediment Urine Bacteria Urine Mucus 01/25/25 01/26/25 21:51 05:29 WBC 6.29 RBC 3.26 L Hgb 10.2 L Hct 32.0 L MCV 98.2 H MCH 31.3 H MCHC 31.9 RDW Coeff of Natalio 15.8 H Plt Count 157 Immature Gran % (Auto) 0.3 Neut % (Auto) 63.0 Lymph % (Auto) 16.4 [place] % (Auto) 9.5 Eos % (Auto) 10.5 H Baso % (Auto) 0.3 Neut # (Auto) 4.0 Lymph # (Auto) 1.0 [place] # (Auto) 0.6 Eos # (Auto) 0.7 Baso # (Auto) 0.0 Immature Gran # (Auto) 0.0 Puncture Site Base Excess O2 Saturation ABG pH ABG pCO2 ABG pO2 ABG HCO3 ABG Total CO2 George Test Hemoglobin Oxyhemoglobin Carboxyhemoglobin Total Hemoglobin O2 Delivery Device Oxygen Liter Flow FiO2 % Sodium 141.6 Potassium 3.39 L Chloride 102.6 Carbon Dioxide 33.1 H Anion Gap 9.29 BUN 20.5 H Creatinine 1.11 H Estimated GFR (MDRD) 65.00 BUN/Creatinine Ratio 18.46 Glucose 97.2 Calcium 9.27 Total Bilirubin 0.54 AST 28.2 ALT 20.5 Alkaline Phosphatase 109.3 Troponin I NT-Pro-B Natriuret Pep Total Protein 6.03 L Albumin 3.29 L Globulin 2.74 Albumin/Globulin Ratio 1.20 D-Dimer Urine Color Light Urine Clarity Slightly Urine pH 7.0 Ur Specific [place] 1.015 Urine Protein Negative Urine Glucose (UA) Negative Urine Ketones Negative Urine Blood 1+ H Urine Nitrite Positive H Urine Bilirubin Negative Urine Urobilinogen 0.2 Ur Leukocyte Esterase 2+ H Urine Microscopic RBC 5-10 Urine Microscopic WBC 20-30 Ur Squamous Epith Cells 10-20 Amorphous Sediment 1+ Urine Bacteria 1+ Urine Mucus 1+ Microbiology This Visit 01/25/25 21:51 Urine,Random Urine Culture - Preliminary Imaging Imaging: EXAM: CHEST FRONTAL VIEW HISTORY: Chest pain COMPARISON: 01/16/2019 IMPRESSION: Heart size is within normal limits. Elevated right hemidiaphragm with mild adjacent atelectasis. Lungs were otherwise clear. No pleural fluid or pneumothorax. No acute bony finding Review Statement Review Statement: I have independently reviewed and interpreted the labs/EKGs/imaging that were ordered by the ER provider. I have reviewed all outside records that are available currently in our EMR including imaging/notes/labs from previous visits. Plan Plan: 1. Acute HF exacerbation, unknown type - Will order echo if able to get one today or tomorrow. Cont lasix 40 mg bid, having good output. Replace potassium. Requiring 4L, baseline 3L. Fluid restrict 1800. Daily weights. 2. Acute on chronic hypoxic respiratory failure in setting of acute HF exacerbation - Plan as above 3. A fib - cont home meds 4. BPH - Cont home meds. Has chronic hernandez. 5. COPD with chronic respiratory failure - Cont home meds DVT Prophylaxis: Eliquis Time Spent: Greater than 80 minutes spent with patient, 50% of the time spent with this patient was devoted to counseling and coordination of care. [facility] minutes spent discussing advance care planning. Admit to: Flip to inpatient today Discussed Plan of Care with Dr. Ryland Varner. Medications Medication Orders: Medications Ordered Category Date Time Status Acetaminophen [Tylenol] Meds 01/25/25 20:57 Active 650 mg PO Q4H PRN Acetaminophen [Tylenol] Meds 01/26/25 02:27 Active 650 mg PO Q4H PRN FEVER/PAIN FEVER/PAIN Apixaban [Eliquis] Meds 01/26/25 09:00 Active 5 mg PO 2XD Ascorbic Acid [Vitamin C] Meds 01/26/25 09:00 Active 500 mg PO DAILY Aspirin [Aspirin EC] Meds 01/26/25 09:00 Active 81 mg PO DAILY Bisacodyl [Dulcolax] Meds 01/26/25 02:27 Active 10 mg RC DAILY PRN CO Constipation Budesonide/Formoterol Fumarate [Symbicort 160-4.5 Mcg Meds 01/26/25 09:00 Active Inhaler] 2 puff IH BID Buspirone HCl [Buspar] Meds 01/26/25 09:00 Active 15 mg PO 2XD Cholecalciferol (Vitamin D3) [Vitamin D] Meds 01/26/25 09:00 Active 5,000 unit PO DAILY Diltiazem HCl [Cardizem Cd] Meds 01/26/25 09:00 Active 240 mg PO DAILY Docusate Sodium [Colace] Meds 01/26/25 09:00 Active 100 mg PO BID Famotidine [Pepcid] Meds 01/26/25 06:00 Active 20 mg PO DAILY Ferrous Sulfate Meds 01/26/25 09:00 Active 324 mg PO DAILY Furosemide [Lasix] Meds 01/26/25 06:00 Active 40 mg IVP BIDAC2 Ipratropium/Albuterol Neb [Duoneb] Meds 01/26/25 02:27 Active 3 ml NEB Q4H PRN Asthma Ipratropium/Albuterol Neb [Duoneb] Meds 01/26/25 00:00 Active 3 ml NEB RTQ6H Magnesium Hydroxide [Milk of Magnesia] Meds 01/26/25 02:27 Active 30 ml PO DAILY PRN CO Constipation Melatonin Meds 01/26/25 21:00 Active 4.5 mg PO BEDTIME Metoprolol Succinate [Toprol Xl] Meds 01/26/25 09:00 Active 25 mg PO DAILY Multivitamin [Multivitamin Tablet] Meds 01/26/25 09:00 Active 1 tab PO DAILY Potassium Chloride [K-Dur] Meds 01/26/25 11:27 Once 40 meq PO ONCE ONE Potassium Chloride [Micro-K Cap] Meds 01/26/25 09:00 Active 10 meq PO DAILY Sertraline HCl [Zoloft] Meds 01/26/25 09:00 Active 100 mg PO DAILY Silver Sulfadiazine [Silvadene Cream] Meds 01/26/25 09:00 Active 1 applic TP DAILY Tamsulosin HCl [Flomax] Meds 01/26/25 09:00 Active 0.4 mg PO DAILY Tiotropium [place] [Spiriva] Meds 01/26/25 09:00 Active 1 cap IH Q24H cyanocobalamin (vitamin B-12) [Vitamin B-12] Meds 01/26/25 09:00 Active 1,000 mcg PO DAILY
[2025-01-26] MEDS: K-DUR PO ONE (12:13)
[2025-01-26] MEDS: SILVADENE CREAM TP SCH (12:14)
[2025-01-26] MEDS: DEFINITY IVP ONE (19:30)
[2025-01-26] MEDS: MELATONIN PO SCH (20:56)
[2025-01-26] MEDS: TYLENOL PO PRN (20:58)
[2025-01-27 07:01] LABS: IMMATURE GRANULOCYTE # (AUTO) 0.0 (0.0-1.0); IMMATURE GRANULOCYTE % (AUTO) 0.4 % (0.0-5.0); RDW COEFFICIENT OF VARIATION 15.8 % (11.6-14.8)
[2025-01-27 07:09] LABS: CREATININE 1.45 mg/dL (0.60-1.10)
[2025-01-27] MEDS: ROCEPHIN 1 GM/50 ML D5W 1 GM/50 ML BAG IV SCH (09:18)
--- NOTE | 2025-01-27 11:48 | PCM.PROG ---
Date/Time Seen Date Seen by Provider: 01/27/25 Time Seen by Provider: 08:30 Provider Provider: MELISSA WHEATLEY PA-C, [facility] Chief Complaint Chief Complaint: ACUTE COPD EXACER. Subjective Subjective: Patient overall feels better. Complains of right ear pain. Noted to have impaction. Otherwise still on 5L, baseline of 3L. Urine culture now showing heavy growth. Objective Appearance: Positive No Apparent Distress, Alert and Oriented x3 and Other (+chronically ill appearing ) Chest/Lungs: Positive Clear to Auscultation Bilaterally; Negative Rales, Rhonci or Wheezes Heart: Positive Irregular Rhythm GI/: Positive Soft, Nontender, Bowel Sounds Normal and No Distention Neurological: Positive Cranial Nerves Intact, Alert, Oriented and Other (+generalized weakness ) Additional Findings: 1-2+ pitting edema hugo lower ext, improved R ear: cerumen impaction, removed with curette, patient tolerated well, TM without erythema. Vital Signs Vital Signs: Vital Signs: Last 24 Hours 01/26/25 13:00 01/26/25 14:00 01/26/25 18:00 Temperature 97.9 F Temperature Source Temporal Artery Scan Pulse Rate 104 H Respiratory Rate 20 Blood Pressure 101/57 L Blood Pressure Mean 71 Blood Pressure Location Left Arm Blood Pressure Position Sitting O2 Sat by Pulse Oximetry 90 L 93 L Oxygen Delivery Method Nasal Cannula Nasal Cannula Oxygen Flow Rate 4 5 Telemetry Type Remote Telemetry Telemetry Monitoring Continues Telemetry Heart Rate 97 Telemetry SPO2 97 EKG AL Interval 0.18 EKG QRS Interval 0.06 Telemetry Strip Reading SR 01/26/25 19:00 01/26/25 19:31 01/26/25 20:00 Temperature Temperature Source Pulse Rate Respiratory Rate 20 Blood Pressure Blood Pressure Mean Blood Pressure Location Blood Pressure Position O2 Sat by Pulse Oximetry 96 Oxygen Delivery Method Nasal Cannula Nasal Cannula Oxygen Flow Rate 5 5 Telemetry Type Remote Telemetry Telemetry Monitoring Continues Telemetry Heart Rate 108 H Telemetry SPO2 97 EKG AL Interval 0.19 EKG QRS Interval 0.[address] 01/26/25 21:23 01/27/25 01:00 01/27/25 01:34 Temperature 98.1 F 97.4 F L Temperature Source Temporal Artery Scan Temporal Artery Scan Pulse Rate 105 H 73 Respiratory Rate 22 H 20 Blood Pressure 144/79 H 114/67 Blood Pressure Mean 100 82 Blood Pressure Location Left Arm Left Arm Blood Pressure Position Supine Supine O2 Sat by Pulse Oximetry 96 92 L Oxygen Delivery Method Nasal Cannula Nasal Cannula Oxygen Flow Rate 5 5 Telemetry Type Remote Telemetry Telemetry Monitoring Continues Telemetry Heart Rate 94 Telemetry SPO2 94 EKG AL Interval 0.18 EKG QRS Interval 0.06 Telemetry Strip Reading SR WITH PAC'S 01/27/25 05:26 01/27/25 05:37 01/27/25 07:00 Temperature 97.3 F L Temperature Source Temporal Artery Scan Pulse Rate 78 Respiratory Rate 20 Blood Pressure 123/62 Blood Pressure Mean 82 Blood Pressure Location Left Arm Blood Pressure Position Supine O2 Sat by Pulse Oximetry 92 L Oxygen Delivery Method Nasal Cannula Nasal Cannula Oxygen Flow Rate 5 5 Telemetry Type Remote Telemetry Telemetry Monitoring Continues Telemetry Heart Rate 66 Telemetry SPO2 94 EKG AL Interval 0.16 EKG QRS Interval 0.08 Telemetry Strip Reading SR 01/27/25 08:00 01/27/25 09:07 01/27/25 09:20 Temperature Temperature Source Pulse Rate Respiratory Rate Blood Pressure Blood Pressure Mean Blood Pressure Location Blood Pressure Position O2 Sat by Pulse Oximetry 93 L 92 L Oxygen Delivery Method Nasal Cannula Nasal Cannula Nasal Cannula Oxygen Flow Rate 5 5 4 Telemetry Type Telemetry Monitoring Telemetry Heart Rate Telemetry SPO2 EKG AL Interval EKG QRS Interval Telemetry Strip Reading 01/27/25 10:00 01/27/25 10:00 Temperature 96.3 F L Temperature Source Temporal Artery Scan Pulse Rate 80 Respiratory Rate 16 Blood Pressure Blood Pressure Mean Blood Pressure Location Right Arm Blood Pressure Position Supine O2 Sat by Pulse Oximetry 90 L 97 Oxygen Delivery Method Nasal Cannula Nasal Cannula Oxygen Flow Rate 3 4 Telemetry Type Telemetry Monitoring Telemetry Heart Rate Telemetry SPO2 EKG AL Interval EKG QRS Interval Telemetry Strip Reading Lab Results Lab Results: Lab Results: Last 24 Hours 01/27/25 05:42 WBC 7.85 RBC 3.24 L Hgb 9.9 L Hct 31.6 L MCV 97.5 H MCH 30.6 MCHC 31.3 L RDW Coeff of Natalio 15.8 H Plt Count 142 Immature Gran % (Auto) 0.4 Neut % (Auto) 68.1 Lymph % (Auto) 14.4 [place] % (Auto) 9.0 Eos % (Auto) 7.8 H Baso % (Auto) 0.3 Neut # (Auto) 5.4 Lymph # (Auto) 1.1 [place] # (Auto) 0.7 Eos # (Auto) 0.6 Baso # (Auto) 0.0 Immature Gran # (Auto) 0.0 Sodium 141.9 Potassium 3.69 Chloride 100.6 Carbon Dioxide 35.3 H Anion Gap 9.69 BUN 21.5 H Creatinine 1.45 H Estimated GFR (MDRD) 47.00 BUN/Creatinine Ratio 14.82 Glucose 99.2 Calcium 9.13 Total Bilirubin 0.57 AST 29.5 ALT 18.7 Alkaline Phosphatase 102.6 Total Protein 5.81 L Albumin 3.11 L Globulin 2.70 Albumin/Globulin Ratio 1.15 Additional Comments Additional Comments: I have independently reviewed and interpreted the labs/EKGs/imaging ordered during this hospital stay. I have reviewed outside records that are available in our EMR that pertain to medical stay including imaging/notes/labs from previous visits. Active Medications Active Medications: Medications Generic Name Dose Route Start Last Admin Trade Name Freq PRN Reason Stop Dose Admin Acetaminophen 650 mg 01/25/25 20:57 01/26/25 20:58 Acetaminophen 325 Mg Tablet PO 650 mg Q4H PRN Administration Mild Pain Acetaminophen 650 mg 01/26/25 02:27 Acetaminophen 325 Mg Tablet PO Q4H PRN FEVER/PAIN Albuterol/Ipratropium 3 ml 01/26/25 00:00 01/27/25 11:11 Ipratropium/Albuterol Vial.Neb NEB 3 ml RTQ6H [place] Administration Albuterol/Ipratropium 3 ml 01/26/25 02:27 Ipratropium/Albuterol Vial.Melissa NEB Q4H PRN Asthma Apixaban 5 mg 01/26/25 09:00 01/27/25 09:16 Apixaban 5 Mg Tab PO 5 mg 2XD [place] Administration Ascorbic Acid 500 mg 01/26/25 09:00 01/27/25 09:16 Ascorbic Acid 500 Mg Tablet PO 500 mg DAILY [place] Administration Aspirin 81 mg 01/26/25 09:00 01/27/25 09:14 Aspirin 81 Mg Tablet. PO 81 mg DAILY [place] Administration Bisacodyl 10 mg 01/26/25 02:27 Bisacodyl 10 Mg Supp.Rect RC DAILY PRN Constipation Budesonide/Formoterol Fumarate 2 puff 01/26/25 09:00 01/27/25 09:13 Budesonide/Formoterol Fumarate 160/4.5 Mcg Inhaler IH 2 puff BID [place] Administration Buspirone HCl 15 mg 01/26/25 09:00 01/27/25 09:15 Buspirone Hcl 10 Mg Tablet PO 15 mg 2XD [place] Administration Cholecalciferol 5,000 unit 01/26/25 09:00 01/27/25 09:15 Cholecalciferol (Vitamin D3) 1,000 Unit (25 Mcg) Tablet PO 5,000 unit DAILY [place] Administration Diltiazem HCl 240 mg 01/26/25 09:00 01/27/25 09:17 Diltiazem Hcl 120 Mg Cap.Er.24h PO 240 mg DAILY [place] Administration Docusate Sodium 100 mg 01/26/25 09:00 01/27/25 09:14 Docusate Sodium 100 Mg Capsule PO 100 mg BID [place] Administration Famotidine 20 mg 01/26/25 06:00 01/27/25 09:14 Famotidine 20 Mg Tablet PO 20 mg DAILY [place] Administration Ferrous Sulfate 324 mg 01/26/25 09:00 01/27/25 09:22 Ferrous Sulfate 324 Mg Tablet. PO 324 mg DAILY [place] Administration Furosemide 40 mg 01/26/25 06:00 01/27/25 05:03 Furosemide Inj 40 Mg/4 Ml Vial IVP 40 mg BIDAC2 [place] Administration CEFTRIAXONE/D5W 1 GM PREMIX 1 gm in 50 mls @ 100 mls/hr 01/27/25 09:00 01/27/25 09:18 Rocephin 1 Gm/50 Ml D5w IV 01/30/25 08:59 100 mls/hr DAILY [place] Administration Magnesium Hydroxide 30 ml 01/26/25 02:27 Magnesium Hydroxide 30 Ml Cup PO DAILY PRN Constipation Melatonin 4.5 mg 01/26/25 21:00 01/26/25 20:56 Melatonin 3 Mg Tablet PO 4.5 mg BEDTIME [place] Administration Metoprolol Succinate 25 mg 01/26/25 09:00 01/27/25 09:16 Metoprolol Succinate 25 Mg Tab.Er.24h PO 25 mg DAILY [place] Administration Multivitamins 1 tab 01/26/25 09:00 01/27/25 09:14 Multivitamin 1 Tab PO 1 tab DAILY [place] Administration Non-Formulary Medication 1,000 mcg 01/26/25 09:00 01/27/25 09:22 Cyanocobalamin (Vitamin B-12) [Vitamin B-12] PO Not Given DAILY [place] Potassium Chloride 10 meq 01/26/25 09:00 01/27/25 09:15 Potassium Chloride 10 Meq Capsule.Er PO 10 meq DAILY [place] Administration Sertraline HCl 100 mg 01/26/25 09:00 01/27/25 09:17 Sertraline Hcl 50 Mg Tablet PO 100 mg DAILY [place] Administration Silver Sulfadiazine 1 applic 01/26/25 09:00 01/27/25 09:13 Silver Sulfadiazine 50 Gm Cream TP 1 applic DAILY [place] Administration Sodium Chloride 1 syr 01/27/25 05:05 01/27/25 05:06 0.9% Sodium Chloride 10 Ml Disp.Syrin IVF 1 syr Q8HR [place] Administration Tamsulosin HCl 0.4 mg 01/26/25 09:00 01/27/25 09:17 Tamsulosin Hcl 0.4 Mg Cap.Er.24h PO 0.4 mg DAILY [place] Administration Tiotropium [place] 1 cap 01/26/25 09:00 01/27/25 09:14 Tiotropium [place] 18 Mcg Cap.W.Dev IH 1 cap Q24H [place] Administration Plan Plan: 1. Acute HFpEF exacerbation - Echo with EF 60-65%, normal diastolic function. Has some hypokinesis. Having good output, transition to home lasix. Replace potassium. Requiring 5L, baseline 3L, wean O2. Fluid restrict 1800. Daily weights. 2. Acute on chronic hypoxic respiratory failure in setting of acute HF exacerbation - Plan as above 3. UTI with chronic hernandez - UC growing heavy growth of GNR, rocephin added. 4. A fib - cont home meds 5. BPH - Cont home meds. Has chronic hernandez. 6. COPD with chronic respiratory failure - Cont home meds DVT Prophylaxis: Nancy Dispo: Possible dc tomorrow Review Statement Review Statement: I have personally discussed and reviewed the patient's visit/currently labs/imaging/decision making with Dr. Varner, my supervising attending. Greater that 50 minutes spent with patient, 50% of the time spent with this patient was devoted to counseling and coordination of care.
[2025-01-27 15:05] LABS: FI02 35.0 %
[2025-01-27 15:07] LABS: ABG PCO2 44.0 mmHg (35-45); ABG PH 7.50 (7.35-7.45); ABG PO2 49.0 mmHg (85-100)
[2025-01-27 15:08] LABS: BEecf 11.1 (-2.0-3.0); HCO3 34.3 (21-28); TCO2 35.7 (19-24)
[2025-01-27 15:09] LABS: ABG O2 HGB 89.9 % (95-100)
[2025-01-28 00:36] LABS: ABG O2 HGB 96.2 % (95-100); ABG PCO2 45.0 mmHg (35-45); ABG PH 7.47 (7.35-7.45); ABG PO2 98.0 mmHg (85-100); BEecf 9.1 (-2.0-3.0); FI02 40.0 %; HCO3 32.8 (21-28); TCO2 34.2 (19-24)
[2025-01-28] MEDS: LASIX TAB PO SCH (05:28)
[2025-01-28 05:31] LABS: ABG O2 HGB 95.4 % (95-100); ABG PCO2 44.0 mmHg (35-45); ABG PH 7.48 (7.35-7.45); ABG PO2 77.0 mmHg (85-100); BEecf 9.3 (-2.0-3.0); FI02 40.0 %; HCO3 32.8 (21-28); TCO2 34.2 (19-24)
--- NOTE | 2025-01-28 07:09 | DI ---
EXAM: CHEST RADIOGRAPH TECHNIQUE: Single frontal chest radiograph. HISTORY: Shortness of breath. Decreased oxygenation. COMPARISON: 01/25/2025. FINDINGS: Small right pleural effusion. Patchy opacities seen in the right lower lobe. The remaining lung mccall are clear. No left effusion. No pneumothorax. Cardiomediastinal silhouette and pulmonary vessels are within normal limits for the technique. Upper abdomen is unremarkable. No acute bony abnormality. D egenerative changes seen in the shoulders. Surgical anchors in the right humeral head. The right humeral neck does show remodeling from previous fracture. IMPRESSION: 1. Patchy hazy opacity in the right lower lobe, pneumonia versus atelectasis. Follow up exam can evaluate for clearing or other etiologies. 2. . Right pleural effusion.
[2025-01-28 08:16] LABS: CREATININE 1.28 mg/dL (0.60-1.10); IMMATURE GRANULOCYTE # (AUTO) 0.0 (0.0-1.0); IMMATURE GRANULOCYTE % (AUTO) 0.0 % (0.0-5.0); RDW COEFFICIENT OF VARIATION 15.6 % (11.6-14.8)
[2025-01-28] MEDS: LEVAQUIN 750 MG/150 ML D5W 750 MG/150 ML BAG IV SCH (09:28)
--- NOTE | 2025-01-28 11:06 | PCM.PROG ---
Date/Time Seen Date Seen by Provider: 01/28/25 Time Seen by Provider: 08:30 Provider Provider: MELISSA WHEATLEY PA-C, [facility] Chief Complaint Chief Complaint: ACUTE COPD EXACER. Subjective Subjective: Patient continued to have episodes of hypoxia yesterday despite changing NC, oxymask, cpap etc. He will recover into the 90s without any clinical change, and then shortly after by saturating low 80s with a good waveform. 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 However his health has significantly declined since then. He denies sob or cp today. UC resulted pseudomonas. Repeat CXR today showing pleural effusion and questionable pneumonia. Objective Appearance: Positive No Apparent Distress, Alert and Oriented x3 and Other (expressive aphasia, difficult to understand at times ) Chest/Lungs: Positive Clear to Auscultation Bilaterally; Negative Rales, Rhonci or Wheezes Heart: Positive RRR GI/: Positive Soft, Nontender, Bowel Sounds Normal and No Distention Neurological: Positive Cranial Nerves Intact, Alert and Other (+generalized weakness, deconditioned ) Additional Findings: 1-2+ pitting edema hugo lower ext Vital Signs Vital Signs: Vital Signs: Last 24 Hours 01/27/25 13:00 01/27/25 14:00 01/27/25 14:00 Temperature 96.9 F L Temperature Source Temporal Artery Scan Pulse Rate 94 Respiratory Rate Blood Pressure 110/61 Blood Pressure Mean 77 Blood Pressure Location Left Arm Blood Pressure Position Supine O2 Sat by Pulse Oximetry 80 L 91 L Oxygen Delivery Method Venturi Mask Nasal Cannula Oxygen Flow Rate 3 Fraction of Inspired Oxygen (FIO2) Weight Telemetry Type Remote Telemetry Telemetry Monitoring Irregular Telemetry Rate (Approximate) 90-100 BPM Telemetry Heart Rate 94 Telemetry SPO2 EKG LA Interval 0.16 EKG QRS Interval 0.07 Telemetry Strip Reading SR 01/27/25 14:37 01/27/25 18:00 01/27/25 19:00 Temperature 97.4 F L Temperature Source Temporal Artery Scan Pulse Rate 97 Respiratory Rate 20 Blood Pressure 115/68 Blood Pressure Mean 83 Blood Pressure Location Left Arm Blood Pressure Position Supine O2 Sat by Pulse Oximetry 93 L 86 L Oxygen Delivery Method [place] Mask Nasal Cannula Oxygen Flow Rate 8 4 Fraction of Inspired Oxygen (FIO2) 35 Weight Telemetry Type Remote Telemetry Telemetry Monitoring Continues Irregular Telemetry Rate (Approximate) Telemetry Heart Rate 92 Telemetry SPO2 96 EKG LA Interval 0.20 EKG QRS Interval 0.06 Telemetry Strip Reading NSR WITH PVC'S 01/27/25 20:00 01/27/25 20:00 01/27/25 22:00 Temperature 97.7 F Temperature Source Temporal Artery Scan Pulse Rate 90 Respiratory Rate 28 H Blood Pressure 129/71 Blood Pressure Mean 90 Blood Pressure Location Left Arm Blood Pressure Position Sitting O2 Sat by Pulse Oximetry 89 L 94 L Oxygen Delivery Method [place] Mask Nasal Cannula C-pap Oxygen Flow Rate 8 4.5 Fraction of Inspired Oxygen (FIO2) Weight Telemetry Type Telemetry Monitoring Irregular Telemetry Rate (Approximate) Telemetry Heart Rate Telemetry SPO2 EKG LA Interval EKG QRS Interval Telemetry Strip Reading 01/27/25 22:03 01/27/25 23:47 01/28/25 01:00 Temperature Temperature Source Pulse Rate Respiratory Rate Blood Pressure Blood Pressure Mean Blood Pressure Location Blood Pressure Position O2 Sat by Pulse Oximetry 95 96 Oxygen Delivery Method Oxygen Flow Rate Fraction of Inspired Oxygen (FIO2) 50 40 Weight Telemetry Type Remote Telemetry Telemetry Monitoring Continues Irregular Telemetry Rate (Approximate) Telemetry Heart Rate 76 Telemetry SPO2 96 EKG LA Interval 0.16 EKG QRS Interval 0.08 Telemetry Strip Reading NSR 01/28/25 02:00 01/28/25 02:00 01/28/25 05:20 Temperature 97.8 F Temperature Source Temporal Artery Scan Pulse Rate 75 82 Respiratory Rate 24 H 22 H Blood Pressure 127/81 Blood Pressure Mean 96 Blood Pressure Location Left Arm Blood Pressure Position O2 Sat by Pulse Oximetry 96 93 L 98 Oxygen Delivery Method C-pap C-pap Oxygen Flow Rate Fraction of Inspired Oxygen (FIO2) 40 Weight Telemetry Type Telemetry Monitoring Irregular Telemetry Rate (Approximate) Telemetry Heart Rate Telemetry SPO2 EKG LA Interval EKG QRS Interval Telemetry Strip Reading 01/28/25 05:38 01/28/25 05:40 01/28/25 07:00 Temperature Temperature Source Pulse Rate Respiratory Rate Blood Pressure Blood Pressure Mean Blood Pressure Location Blood Pressure Position O2 Sat by Pulse Oximetry 96 96 Oxygen Delivery Method Nasal Cannula Oxygen Flow Rate 4.5 Fraction of Inspired Oxygen (FIO2) 40 Weight Telemetry Type Remote Telemetry Telemetry Monitoring Continues Irregular Telemetry Rate (Approximate) Telemetry Heart Rate 87 Telemetry SPO2 96 EKG LA Interval 0.16 EKG QRS Interval 0.08 Telemetry Strip Reading NSR 01/28/25 08:00 01/28/25 08:18 01/28/25 10:00 Temperature 96.9 F L Temperature Source Temporal Artery Scan Pulse Rate 83 Respiratory Rate 20 Blood Pressure 106/61 Blood Pressure Mean 76 Blood Pressure Location Right Arm Blood Pressure Position O2 Sat by Pulse Oximetry 98 Oxygen Delivery Method Nasal Cannula Nasal Cannula Oxygen Flow Rate 5 5 Fraction of Inspired Oxygen (FIO2) Weight 110.6 kg Telemetry Type Telemetry Monitoring Irregular Telemetry Rate (Approximate) Telemetry Heart Rate Telemetry SPO2 EKG LA Interval EKG QRS Interval Telemetry Strip Reading Lab Results Lab Results: Lab Results: Last 24 Hours 01/28/25 01/28/25 01/28/25 07:16 05:18 00:04 WBC 7.17 RBC 3.12 L Hgb 9.7 L Hct 30.8 L MCV 98.7 H MCH 31.1 H MCHC 31.5 L RDW Coeff of Natalio 15.6 H Plt Count 134 L Immature Gran % (Auto) 0.0 Neut % (Auto) 66.9 Lymph % (Auto) 13.2 [place] % (Auto) 11.0 H Eos % (Auto) 8.8 H Baso % (Auto) 0.1 Neut # (Auto) 4.8 Lymph # (Auto) 1.0 [place] # (Auto) 0.8 Eos # (Auto) 0.6 Baso # (Auto) 0.0 Immature Gran # (Auto) 0.0 Puncture Site [place] [employer] Excess 9.3 H 9.1 H O2 Saturation 96.2 98.0 ABG pH 7.48 H 7.47 H ABG pCO2 44.0 45.0 ABG pO2 77.0 L 98.0 ABG HCO3 32.8 H 32.8 H ABG Total CO2 34.2 H 34.2 H George Test Pos Pos Hemoglobin 0.9 0 Oxyhemoglobin 95.4 96.2 Carboxyhemoglobin 1.5 0.9 Total Hemoglobin 10.3 L 9.5 L O2 Delivery Device Bipap Bipap FiO2 % 40.0 40.0 Sodium 139.3 Potassium 3.65 Chloride 99.3 Carbon Dioxide 35.3 H Anion Gap 8.35 BUN 23.1 H Creatinine 1.28 H Estimated GFR (MDRD) 55.00 BUN/Creatinine Ratio 18.04 Glucose 103.7 Calcium 9.12 Magnesium 2.02 Total Bilirubin 0.53 AST 24.0 ALT 18.0 Alkaline Phosphatase 99.7 NT-Pro-B Natriuret Pep 659 H Total Protein 5.45 L Albumin 2.95 L Globulin 2.50 Albumin/Globulin Ratio 1.18 01/27/25 14:58 WBC RBC Hgb Hct MCV MCH MCHC RDW Coeff of Natalio Plt Count Immature Gran % (Auto) Neut % (Auto) Lymph % (Auto) [place] % (Auto) Eos % (Auto) Baso % (Auto) Neut # (Auto) Lymph # (Auto) [place] # (Auto) Eos # (Auto) Baso # (Auto) Immature Gran # (Auto) Puncture Site r brach Base Excess 11.1 H O2 Saturation 87.9 L ABG pH 7.50 H ABG pCO2 44.0 ABG pO2 49.0 L* ABG HCO3 34.3 H ABG Total CO2 35.7 H George Test + Hemoglobin 0.9 Oxyhemoglobin 89.9 L Carboxyhemoglobin 2.1 H Total Hemoglobin 10.3 L O2 Delivery Device FiO2 % 35.0 Sodium Potassium Chloride Carbon Dioxide Anion Gap BUN Creatinine Estimated GFR (MDRD) BUN/Creatinine Ratio Glucose Calcium Magnesium Total Bilirubin AST ALT Alkaline Phosphatase NT-Pro-B Natriuret Pep Total Protein Albumin Globulin Albumin/Globulin Ratio Additional Comments Additional Comments: I have independently reviewed and interpreted the labs/EKGs/imaging ordered during this hospital stay. I have reviewed outside records that are available in our EMR that pertain to medical stay including imaging/notes/labs from previous visits. Active Medications Active Medications: Medications Generic Name Dose Route Start Last Admin Trade Name Freq PRN Reason Stop Dose Admin Acetaminophen 650 mg 01/25/25 20:57 01/28/25 08:55 Acetaminophen 325 Mg Tablet PO 650 mg Q4H PRN Administration Mild Pain Albuterol/Ipratropium 3 ml 01/26/25 00:00 01/28/25 05:44 Ipratropium/Albuterol Vial.Neb NEB 3 ml RTQ6H [place] Administration Albuterol/Ipratropium 3 ml 01/26/25 02:27 Ipratropium/Albuterol Vial.Neb NEB Q4H PRN Asthma Apixaban 5 mg 01/26/25 09:00 01/28/25 08:14 Apixaban 5 Mg Tab PO 5 mg 2XD [place] Administration Ascorbic Acid 500 mg 01/26/25 09:00 01/28/25 08:10 Ascorbic Acid 500 Mg Tablet PO 500 mg DAILY [place] Administration Aspirin 81 mg 01/29/25 07:30 Aspirin 81 Mg Tablet. PO DAILYWM2 [place] Bisacodyl 10 mg 01/26/25 02:27 Bisacodyl 10 Mg Supp.Rect RC DAILY PRN Constipation Budesonide/Formoterol Fumarate 2 puff 01/26/25 09:00 01/28/25 08:06 Budesonide/Formoterol Fumarate 160/4.5 Mcg Inhaler IH 2 puff BID [place] Administration Buspirone HCl 15 mg 01/26/25 09:00 01/28/25 08:15 Buspirone Hcl 10 Mg Tablet PO 15 mg 2XD [place] Administration Cholecalciferol 5,000 unit 01/26/25 09:00 01/28/25 08:09 Cholecalciferol (Vitamin D3) 1,000 Unit (25 Mcg) Tablet PO 5,000 unit DAILY [place] Administration Diltiazem HCl 240 mg 01/26/25 09:00 01/28/25 08:10 Diltiazem Hcl 120 Mg Cap.Er.24h PO 240 mg DAILY [place] Administration Docusate Sodium 100 mg 01/26/25 09:00 01/28/25 08:09 Docusate Sodium 100 Mg Capsule PO 100 mg BID [place] Administration Famotidine 20 mg 01/26/25 06:00 01/28/25 08:09 Famotidine 20 Mg Tablet PO 20 mg DAILY [place] Administration Ferrous Sulfate 324 mg 01/26/25 09:00 01/28/25 08:11 Ferrous Sulfate 324 Mg Tablet. PO 324 mg DAILY [place] Administration Furosemide 40 mg 01/28/25 06:00 01/28/25 05:28 Furosemide 40 Mg Tablet PO 40 mg QDAC2 [place] Administration CEFTRIAXONE/D5W 1 GM PREMIX 1 gm in 50 mls @ 100 mls/hr 01/27/25 09:00 01/28/25 08:44 Rocephin 1 Gm/50 Ml D5w IV 01/30/25 08:59 100 mls/hr DAILY [place] Administration Levofloxacin/Dextrose 750 mg in 150 mls @ 100 mls/hr 01/28/25 09:30 01/28/25 09:28 Levaquin 750 Mg/150 Ml D5w IV 01/31/25 09:29 100 mls/hr DAILY [place] Administration Magnesium Hydroxide 30 ml 01/26/25 02:27 Magnesium Hydroxide 30 Ml Cup PO DAILY PRN Constipation Melatonin 4.5 mg 01/26/25 21:00 01/27/25 21:17 Melatonin 3 Mg Tablet PO 4.5 mg BEDTIME [place] Administration Metoprolol Succinate 25 mg 01/26/25 09:00 01/28/25 08:10 Metoprolol Succinate 25 Mg Tab.Er.24h PO 25 mg DAILY [place] Administration Multivitamins 1 tab 01/26/25 09:00 01/28/25 08:08 Multivitamin 1 Tab PO 1 tab DAILY [place] Administration Non-Formulary Medication 1,000 mcg 01/26/25 09:00 01/28/25 08:11 Cyanocobalamin (Vitamin B-12) [Vitamin B-12] PO Not Given DAILY [place] Potassium Chloride 10 meq 01/29/25 07:30 Potassium Chloride 10 Meq Capsule.Er PO DAILYWM2 [place] Sertraline HCl 100 mg 01/26/25 09:00 01/28/25 08:08 Sertraline Hcl 50 Mg Tablet PO 100 mg DAILY [place] Administration Silver Sulfadiazine 1 applic 01/26/25 09:00 01/28/25 08:16 Silver Sulfadiazine 50 Gm Cream TP 1 applic DAILY [place] Administration Sodium Chloride 1 syr 01/27/25 05:05 01/28/25 05:28 0.9% Sodium Chloride 10 Ml Disp.Syrin IVF 1 syr Q8HR [place] Administration Tamsulosin HCl 0.4 mg 01/26/25 09:00 01/28/25 08:07 Tamsulosin Hcl 0.4 Mg Cap.Er.24h PO 0.4 mg DAILY [place] Administration Tiotropium [place] 1 cap 01/26/25 09:00 01/28/25 08:06 Tiotropium [place] 18 Mcg Cap.W.Dev IH 1 cap Q24H [place] Administration Plan Plan: 1. Acute HFpEF exacerbation - Echo with EF 60-65%, normal diastolic function. Has some hypokinesis. Having good output, will restart lasix IV today as he's continuing to desat. CPAP when sleeping, suspect JOYCE playing a role. Replace potassium. Requiring 5L, baseline 3L, wean O2. Fluid restrict 1800. Daily weights. 2. Acute on chronic hypoxic respiratory failure in setting of acute HF exacerbation - Plan as above 3. UTI with chronic hernandez due to pseudomonas - Antibiotic changed to levaquin, changing hernandez today, unknown last change date 4. A fib - cont home meds 5. BPH - Cont home meds. Has chronic hernandez. 6. COPD with chronic respiratory failure - Cont home meds 7. Questionable pneumonia on CXR - will cover w/ levaquin DVT Prophylaxis: Nancy Dispo: DC when saturations are stable Review Statement Review Statement: I have personally discussed and reviewed the patient's visit/currently labs/imaging/decision making with Dr. Varner, my supervising attending. Greater that 50 minutes spent with patient, 50% of the time spent with this patient was devoted to counseling and coordination of care.
[2025-01-28] MEDS: LASIX IVP SCH (13:41)
[2025-01-28] MEDS: GLYDO TRANSURETH ONE (15:41)
[2025-01-29 05:27] LABS: IMMATURE GRANULOCYTE # (AUTO) 0.0 (0.0-1.0); IMMATURE GRANULOCYTE % (AUTO) 0.4 % (0.0-5.0); RDW COEFFICIENT OF VARIATION 15.6 % (11.6-14.8)
[2025-01-29 05:41] LABS: CREATININE 1.31 mg/dL (0.60-1.10)
[2025-01-29] MEDS: ASPIRIN EC PO SCH (08:23)
[2025-01-29] MEDS: MICRO-K CAP PO SCH (08:24)
--- NOTE | 2025-01-29 14:15 | DCSUM ---
Admission Date Admission Date: 01/25/25 Discharge Date Discharge Date: 01/29/25 Admission Diagnosis Admission Diagnosis: 1. Acute HFpEF exacerbation 2. Acute on chronic hypoxic respiratory failure in setting of acute HF exacerbation Discharge Diagnosis Discharge Diagnosis: 1. Acute HFpEF exacerbation 2. Acute on chronic hypoxic respiratory failure in setting of acute HF exacerbation 3. UTI with chronic barnes due to pseudomonas 4. A fib 5. BPH 6. COPD with chronic respiratory failure 7. Questionable pneumonia on CXR Hospital Provider Hospital Provider: MELISSA WHEATLEY PA-C, [facility] Primary Care Physician Primary Care Physician: KEN LIM MD Summary of History and Physical Summary of History and Physical: Patient is a 75 year old male who presents from [place] for cc of SOB. Patient is fixated on his covid diagnosis a few years ago when asked how long he's been SOB. Reportedly he was noted to be SOB at [place] yesterday morning. In ER, BNP elevated from baseline. He is requiring 4L, baseline of 3L, and noted to have significant lower ext edema. He was given lasix. CXR and CTA chest negative for acute findings. Admitted to [facility]. Overnight patient had increased RR and was SOB. He was given extra dose of lasix and metoprolol, as HR was elevated as well. Today patient continues to have significant lower ext edema and has had about 3L out. Hospital Course Subjective: Patient had a CTA which was negative. Patient was treated with IV Lasix and diuresed well. Echo performed showing normal EF but does make mention of abnormal wall motion. On 01/27 patient was on 5 L. It was attempted to wean him down to 3 L and transition to his oral Lasix. However he has continued to have episodes of hypoxia, down into the low 80s at times, worse when asleep. He was asymptomatic during these episodes. That night he was placed on CPAP with improvement of his saturations. On 01/28, repeat chest x-ray shows a small right sided pleural effusion and atelectasis versus pneumonia. Historically his chest x-rays do show this area of atelectasis in the right lower lobe. Coincidentally his urine has grown Pseudomonas sensitive to Levaquin so he was covered for both UTI and pneumonia with Levaquin, however pneumonia less likely with normal infection markers and no fever. Patient was restarted on IV Lasix to continue diuresis. He wore CPAP again that night with improvement of his saturations. Today 01/29, patient appears euvolemic with mild swelling but much improved from admission. He has not been short of breath. Denies chest pain. Saturations have been steady in the 90s today. I do feel that he likely has a component of sleep apnea contributing to his hypoxia, as it is worse when he is asleep. He states that he has had sleep apnea in the past and required CPAP prior to having gastric bypass. He has had a decline in his health in the last year or 2 and is likely having worsening symptoms. Will need an outpatient sleep study to confirm. In the meantime we will have him wear CPAP to prevent significant hypo jovana while asleep, he has been at a setting of 8 and between 40 to 50% FiO2. He is agreeable to wear it. I spoke with Dr. Blackwell, sales record clerk regarding his echo findings, as his last echo at [facility] in July 19 did not show any abnormal wall motion. He does not feel this is acute as his EKG and troponins were negative upon admission as well. Recommended outpatient ischemic workup. Appointment made with Dr. Blackwell for in a few weeks. Levaquin for 5 more days due to UTI. Barnes catheter was changed on 01/28. Discharged in stable condition. Appearance: Pleasant, No Apparent Distress, Alert and Other (+chronically ill appearing ) HEENT: Supple CVS: Other (irregular, rate controlled ) Abdomen: Soft, Non-Tender and No Distention Respiratory: No Accessory Muscle Use Extremities: Other (1+ pitting edema, much improved since admission ) Vital Signs: Most Recent Vital Signs Temperature 97.2 F L 01/29/25 10:00 Temperature Source Temporal Artery Scan 01/29/25 10:00 Temperature Source Infrared 01/25/25 17:05 Pulse Rate 82 01/29/25 10:00 Respiratory Rate 16 01/29/25 10:00 Blood Pressure 118/67 01/29/25 10:00 Blood Pressure Mean 84 01/29/25 10:00 Blood Pressure Right Arm 147/82 01/25/25 22:00 Blood Pressure Location Left Arm 01/29/25 10:00 Blood Pressure Position Supine 01/29/25 05:13 O2 Sat by Pulse Oximetry 97 01/29/25 10:00 Oxygen Delivery Method Nasal Cannula 01/29/25 10:00 Oxygen Flow Rate 3 01/29/25 10:00 Fraction of Inspired Oxygen (FIO2) 50 01/29/25 05:29 Height 5 ft 9 in 01/25/25 22:00 Weight 111 kg 01/29/25 05:16 Telemetry Type Remote Telemetry 01/29/25 01:00 Telemetry Monitoring Continues 01/29/25 01:00 Irregular Telemetry Rate (Approximate) 90-100 BPM 01/27/25 13:00 Telemetry Heart Rate 86 01/29/25 01:00 Telemetry SPO2 98 01/29/25 01:00 EKG [place] Interval 0.16 01/29/25 01:00 EKG QRS Interval 0.08 01/29/25 01:00 Telemetry Strip Reading SR 01/29/25 01:00 Imaging: EXAM: CHEST FRONTAL VIEW HISTORY: Chest pain COMPARISON: 01/16/2019 IMPRESSION: Heart size is within normal limits. Elevated right hemidiaphragm with mild adjacent atelectasis. Lungs were otherwise clear. No pleural fluid or pneumothorax. No acute bony finding EXAM: CT ANGIOGRAPHY OF THE CHEST HISTORY: Elevated D-dimer and shortness of breath TECHNIQUE: 1.[address] of the chest utilizing CT angiography protocol. Multiplanar and three-dimensional reformations were performed. FINDINGS: Technically adequate for evaluation of pulmonary arteries. No pulmonary artery filling defects. Atherosclerotic calcification of the aorta without aneurysm or dissection. No pathologic lymph node enlargement. Elevated right hemidiaphragm and adjacent thick atelectasis. Atelectasis along the fissure in the right upper lobe. No infiltrates at the pneumatized lung. No acute chest wall abnormality. No acute findings of the upper abdomen. IMPRESSION: 1. No evidence of pulmonary artery thrombus 2. Right atelectasis and volume loss 3. No infiltrates of the pneumatized lung EXAM: CHEST RADIOGRAPH TECHNIQUE: Single frontal chest radiograph. HISTORY: Shortness of breath. Decreased oxygenation. COMPARISON: 01/25/2025. FINDINGS: Small right pleural effusion. Patchy opacities seen in the right lower lobe. The remaining lung mccall are clear. No left effusion. No pneumothorax. Cardiomediastinal silhouette and pulmonary vessels are within normal limits for the technique. Upper abdomen is unremarkable. No acute bony abnormality. Degenerative changes seen in the shoulders. Surgical anchors in the right humeral head. The right humeral neck does show remodeling from previous fracture. IMPRESSION: 1. Patchy hazy opacity in the right lower lobe, pneumonia versus atelectasis. Follow up exam can evaluate for clearing or other etiologies. 2. . Right pleural effusion. Lab Results Last 24 Hours: 01/29/25 05:10 WBC 6.84 RBC 3.00 L Hgb 9.2 L Hct 29.3 L MCV 97.7 H MCH 30.7 MCHC 31.4 L RDW Coeff of Natalio 15.6 H Plt Count 143 Immature Gran % (Auto) 0.4 Neut % (Auto) 69.2 Lymph % (Auto) 8.5 L Sweet [place] % (Auto) 8.3 Eos % (Auto) 13.5 H Baso % (Auto) 0.1 Neut # (Auto) 4.7 Lymph # (Auto) 0.6 Sweet [place] # (Auto) 0.6 Eos # (Auto) 0.9 H Baso # (Auto) 0.0 Immature Gran # (Auto) 0.0 Sodium 140.3 Potassium 3.56 Chloride 99.8 Carbon Dioxide 33.0 H Anion Gap 11.06 BUN 24.2 H Creatinine 1.31 H Estimated GFR (MDRD) 53.00 BUN/Creatinine Ratio 18.47 Glucose 100.1 Calcium 9.01 Total Bilirubin 0.50 AST 31.9 ALT 18.5 Alkaline Phosphatase 95.5 Total Protein 5.75 L Albumin 3.04 L Globulin 2.71 Albumin/Globulin Ratio 1.12 Discharge Instructions Discharge Planning: Discharge Planning > [address] Ryland Varner. Discharge Medications: Medications at Discharge (Home Meds & RX) tamsulosin 0.4 mg capsule (Flomax) 0.4 mg PO DAILY 12/15/18 acetaminophen 325 mg tablet 650 mg PO Q4H PRN fever or pain 01/25/25 apixaban 5 mg tablet (Eliquis) 5 mg PO 2XD 01/25/25 ascorbic acid (vitamin C) 500 mg chewable tablet (Acerola C) 500 mg PO DAILY 01/25/25 aspirin 81 mg tablet 81 mg PO DAILY 01/25/25 bisacodyl 10 mg rectal suppository (Dulcolax (bisacodyl)) 10 mg [place] DAILY PRN constipation 01/25/25 buspirone 15 mg tablet 15 mg PO 2XD 01/25/25 cholecalciferol (vitamin D3) 125 mcg (5,000 unit) tablet (Vitamin D3) 5,000 unit PO DAILY 01/25/25 cyanocobalamin (vitamin B-12) 1,000 mcg tablet (Vitamin B-12) 1,000 mcg PO DAILY 01/25/25 diltiazem HCl 240 mg capsule,extended release 24 hr, controlled (DILT-XR) 240 mg PO DAILY 01/25/25 docusate sodium 100 mg capsule 100 mg PO BID 01/25/25 famotidine 20 mg tablet 20 mg PO DAILY 01/25/25 ferrous sulfate 325 mg (65 mg iron) tablet (Feosol) 325 mg PO DAILY 01/25/25 fluticasone 250 mcg-salmeterol 50 mcg/dose blistr powdr for inhalation 1 ea inhalation 2XD 01/25/25 furosemide 40 mg tablet 40 mg PO DAILY 01/25/25 geriatric multivitamin-min 1 cap PO DAILY 01/25/25 ipratropium 0.5 mg-albuterol 3 mg (2.5 mg base)/3 mL nebulization soln 3 ml inhalation Q4H PRN shortness of breath 01/25/25 magnesium hydroxide 400 mg/5 mL oral suspension (Milk of Magnesia) 2,400 mg PO DAILY PRN constipation 01/25/25 melatonin 5 mg tablet 5 mg PO BEDTIME 01/25/25 potassium chloride 10 mEq tablet,extended release(part/cryst) 10 meq PO DAILY 01/25/25 sertraline 100 mg tablet 100 mg PO DAILY 01/25/25 silver sulfadiazine 1 % topical cream 1 applic topical DAILY 01/25/25 sodium phosphates 19 gram-7 gram/118 mL enema (Fleet Enema) 118 ml [place] DAILY PRN constipation 01/25/25 tiotropium bromide 2.5 mcg/actuation mist for inhalation (Spiriva Respimat) 2 puff inhalation Q24H 01/25/25 furosemide 20 mg tablet (Lasix) 20 mg PO DAILY PRN edema #1 tab 01/29/25 levofloxacin 750 mg tablet 750 mg PO DAILY 5 days #5 tabs 01/29/25 metoprolol succinate 25 mg tablet,extended release 24 hr (Toprol XL) 25 mg PO DAILY #1 tab 01/29/25 Discharge Plan Discharge Discharge Orders: Discharge Patient (ONCE); Ordered 01/29/25 Ordered By: MELISSA WHEATLEY Activity Restrictions/Additional Instructions: DISCHARGE TO SNF DX: FLUID OVERLOAD, HYPOXIA, UTI DIET: CARDIAC, FLUID RESTRICTION 1800 ML RECOMMEND OUTPATIENT SLEEP STUDY CHRIS CPAP WHILE SLEEPING OTHERWISE CONTINUE 3-5L BARNES CATHETER CHANGED ON 01/[address] RISHI JIMENEZ DUE TO ABNORMAL WALL MOTION ON ECHO F/U WITH PCP WITHIN 3-5 DAYS LEVAQUIN PRESCRIBED FOR UTI Patient has been using a cpap at night with settings of: cpap +8cmH2O, 40-50% FiO2. Patient needs a home cpap with settings of: +8cmH2O, with FiO2 titrated to keep SpO2 greater than or equal to 90%. Patient Disposition: TRANSFER SNF Prescriptions: New metoprolol succinate [Toprol XL] 25 mg Tablet Extended Release 24 Hr 25 mg PO DAILY Qty: 1 0RF levofloxacin 750 mg tablet 750 mg PO DAILY 5 Days Qty: 5 0RF Rx Instructions: START 01/30/25 furosemide [Lasix] 20 mg tablet 20 mg PO DAILY PRN (Reason: edema) Qty: 1 0RF Rx Instructions: give prn in addition to 40 mg daily if >3 lbs weight gain or worsening swelling Continued acetaminophen 325 mg tablet 650 mg PO Q4H PRN (Reason: fever or pain) fluticasone propion-salmeterol 250-50 mcg/dose blister with device 1 ea inhalation 2XD aspirin 81 mg tablet 81 mg PO DAILY diltiazem HCl [DILT-XR] 240 mg capsule,ext.rel 24h degradable 240 mg PO DAILY buspirone 15 mg tablet 15 mg PO 2XD docusate sodium 100 mg capsule 100 mg PO BID bisacodyl [Dulcolax (bisacodyl)] 10 mg suppository 10 mg [place] DAILY PRN (Reason: constipation) famotidine 20 mg tablet 20 mg PO DAILY Eliquis 5 mg tablet 5 mg PO 2XD ferrous sulfate [Feosol] 325 mg (65 mg iron) tablet 325 mg PO DAILY Fleet Enema 19-7 gram/118 mL enema 118 ml [place] DAILY PRN (Reason: constipation) furosemide 40 mg tablet 40 mg PO DAILY ipratropium-albuterol 0.5 mg-3 mg(2.5 mg base)/3 mL solution for nebulization 3 ml INHALATION Q4H PRN (Reason: shortness of breath) Patient Comments: [NO ORIGINAL SIG] melatonin 5 mg tablet 5 mg PO BEDTIME magnesium hydroxide [Milk of Magnesia] 400 mg/5 mL suspension 2,400 mg PO DAILY PRN (Reason: constipation) Rx Instructions: if no bowel movement in 3 days geriatric multivitamin-min Capsule 1 cap PO DAILY silver sulfadiazine 1 % cream 1 applic topical DAILY sertraline 100 mg tablet 100 mg PO DAILY potassium chloride 10 mEq tablet,ER particles/crystals 10 meq PO DAILY Spiriva Respimat 2.5 mcg/actuation mist 2 puff inhalation Q24H cyanocobalamin (vitamin B-12) [Vitamin B-12] 1,000 mcg tablet 1,000 mcg PO DAILY ascorbic acid (vitamin C) [Acerola C] 500 mg tablet,chewable 500 mg PO DAILY cholecalciferol (vitamin D3) [Vitamin D3] 125 mcg (5,000 unit) tablet 5,000 unit PO DAILY tamsulosin [Flomax] 0.4 MG capsule 0.4 mg PO DAILY Discontinued metoprolol succinate 25 mg tablet extended release 24 hr See Rx Instructions .ROUTE .COMPLEX Qty: 180 1RF Dose Instruction: TAKE 1 TABLET BY MOUTH TWICE DAILY Rx Instructions: TAKE 1 TABLET BY MOUTH TWICE DAILY diltiazem HCl 240 MG capsule,extended release 24hr 240 mg PO DAILY Did you review [place] [employer]TE[employer]ER ASSISTANT for ALL controlled substances?: Not Applicable Discussed opioids are addictive and Narcan is available by prescription or from pharmacy.: No Condition: Stable Referrals: MARIA LUZ BLACKWELL [REFERRING, RESEARCH SOIL SCIENTIST] - 02/13/25 9:00 am
[2025-01-29] MEDS: LASIX TAB PO ONE (15:02)
[2025-01-29 15:20] VITALS: BP 129/69; PULSE 91; RESP 18; TEMP 96.7
== END 2025-01-29 15:50 | DRG 291 ==
LOC: ED 17:04 → MEDSURG B 17:04
PROVIDERS: ADMIT Hospitalist; ATTEND Physician Assistant